=== PATIENT | female | born 1940 | race Caucasian/White ===

== ENCOUNTER → 2016-12-25 | Outpatient (CLI) | payer BC ==
[~2016-12-25] MED LIST: ARTISOL12 OP; ARTISOL12 OPB; ASPCH81X PO; CALC200T PO; CLON0.5T3 PO; EVS60 PO; GLUC10007 PO; HYDR-5688 PO; IBUP1CAP9 PO; METO-217 PO; NIAC500T7 PO; OMEGCAP2 PO; PANT40TA PO; PRED1SUS3 OPR; RALO60TA30 PO; SIMV40TA2 PO; [UNRECOGNIZED DRUG - CODE] OPB
--- NOTE | 2016-12-25 11:21 | DIAGNOSTIC IMAGING REPORT ---
LEFT FOOT 3 VIEWS HISTORY: Left foot pain. COMPARISON: None. FINDINGS: There is no fracture or dislocation. Soft tissues are unremarkable. No radiopaque foreign bodies. The Lisfranc joint is intact. 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 Small plantar heel spur. IMPRESSION: No fractures. 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 Electronically signed by: Wilson Edgar M.D. 12/25/2016 11:19 AM Dictated Date/Time: 12/25/2016 11:17 AM
== END | disposition home or self-care (01) ==
LOC: C.RAD1850 11:07
PROVIDERS: ATTEND Internal Medicine
DX: M19.072 Primary osteoarthritis, left ankle and foot (principal)

== ENCOUNTER 2017-02-10 09:35 | Emergency (ER) | payer BC ==
[~2017-02-10] VITALS: Ht 160 cm; Wt 58.6 kg
[~2017-02-10 09:35] MED LIST changes: -ARTISOL12 OP; -ARTISOL12 OPB; -HYDR-5688 PO; -PANT40TA PO; -PRED1SUS3 OPR; -RALO60TA30 PO
[2017-02-10 09:41] VITALS: TEMP 36.4; Ht 160 cm; Wt 58.6 kg
--- NOTE | 2017-02-10 09:55 | EMERGENCY ROOM VISIT NOTE ---
ED Visit Note First contact with patient: 09:46 CHIEF COMPLAINT: Wrist injury HISTORY OF PRESENT ILLNESS: This 76-year-old female patient presents to the emergency department ambulatory complaining of pain in the left wrist after falling back onto an outstretched hand at the [facility] today when she was using a resistance band, pulling backwards and it broke.. The patient is to move their wrist. The patient states the pain is sharp and 6/10. No laceration, no weakness. No numbness or tingling. The patient denies any other injury. The patient is able to move their fingers and elbow without difficulty. The patient has not had any previous injuries to this wrist. The patient has taken nothing for the pain. She sees Dr. Carrasquillo. REVIEW OF SYSTEMS: A 6 system review of systems was performed with positives and pertinent negatives in the HPI. ALLERGIES: Bacitracin, neomycin MEDICATIONS: See nursing notes PMH: Osteoporosis, hyperlipidemia, hypertension, multiple sclerosis SOCIAL HISTORY: The patient lives locally. She does not smoke PHYSICAL EXAM: Vital Signs: Reviewed Nurse's notes, vital signs stable. GENERAL : This is a 76-year-old female, in no acute distress, but appears to be in pain , well-developed, well-nourished. NEURO: Alert and oriented to person place and time. Normal sensation to light and sharp touch. MUSCULOSKELETAL: There is no significant deformity of the left wrist. There is no erythema and mild ecchymosis. There is mild edema. Tenderness over left distal radius. There is no snuff box tenderness. There is tenderness with any movement. Range of motion is intact but painful. There is no tenderness of the elbow, hand or fingers. Instructional Coach strength 5/5. Radial pulse 2+. SKIN: Normal and intact. The hand is warm and well perfused with capillary refill less than 2 seconds. There is tenderness to palpation over the coccyx and the lumbar spine. There is no obvious deformity, edema, ecchymosis. EMERGENCY DEPARTMENT COURSE: I examined the patient. An X-ray of the left wrist was reviewed by myself and radiology and showed distal radius fracture and ulnar styloid fracture. I do not suspect that the fracture requires reduction although there is some degree of dorsal angulation. Dr. Penny was able to review the films and agreed that this does not require emergent reduction. A sugar tong Ortho-Glass splint was placed under my direction and the position was satisfactory. Neurovascular status rechecked and intact. As the patient sat in the emergency department, she began to complain of coccyx and low back pain. She did not have any loss of bowel or bladder control, neurologic deficit on exam or by history. X-rays of the lumbar spine and coccyx were obtained and do not reveal any acute abnormalities. There are chronic degenerative changes and anterior listhesis. She was given a small prescription for Calvin. She should contact orthopedics today to schedule a follow-up appointment for further evaluation and management. She should return to the ER with any worsening symptoms. The patient was discharged home in good condition. The patient was also seen and examined by who agrees with the assessment and treatment plan. LUMBAR SPINE 5 VIEWS HISTORY: fall, low back, coccyx pain COMPARISON: None. FINDINGS: There is no fracture. 5 mm of anterolisthesis of L4 on L5. Severe disc space narrowing at L4-L5 and L5-S1. Mild disc space narrowing at L2-L3 and L3-L4. Mild facet degenerative changes within the lower lumbar spine. Minimal S-shaped scoliosis of the thoracolumbar spine. The sacrum appears intact. IMPRESSION: No fracture or subluxation within the lumbar spine. Degenerative changes as described above. Grade I anterolisthesis of L4 on L5. COCCYX ONLY CLINICAL HISTORY: Fall, coccyx pain. COMPARISON STUDY: No previous studies for comparison. FINDINGS: No fracture of the coccyx is identified. Sacroiliac joints appear intact. IMPRESSION: No coccygeal fracture identified. LEFT WRIST W/NAVICULAR MIN 3 VIEWS CLINICAL HISTORY: Left wrist pain. Trauma. COMPARISON: None DISCUSSION: There is an intra-articular impaction fracture of the distal radius. There is an associated ulnar styloid fracture.. There is a 22 degree dorsal tilt of the radial articular surface. Moderately advanced osteoarthritic changes are present the level the first carpal metacarpal joint. IMPRESSION: Intra-articular impaction fracture of the distal radius with secondary 22 degrees dorsal tilt of the articular surface. Associated ulnar styloid fracture. Current/Historical Medications Scheduled Artificial Tear Solution (Artificial Tears), 1 DROPS OP DAILY Aspirin (Aspirin Chewable), 2 TABS PO QAM Calcium Carbonate-Vitamin D (Oscal 500/200 D-3), 1 TAB PO QAM Glucosamine Sulfate (Glucosamine), 1,500 MG PO QAM Metoprolol Succinate (Toprol Xl), 50 MG PO QAM Niacinamide (Niacin), 500 MG PO QAM [place]-3 Fatty Acids (Fish Oil), 1 CAP PO QAM Raloxifene Hcl (Evista), 60 MG PO DAILY Simvastatin (Zocor), 40 MG PO QPM Scheduled PRN Clonazepam (Klonopin), 0.5 MG PO DAILY PRN for Anxiety Hydrocodone/Acetaminophen 5MG/325MG (Calvin 5MG/325MG), 1 TABLET PO Q6 PRN for Pain Ibuprofen (Ibuprofen), 1 CAP PO QAM PRN for Pain Allergies Coded Allergies: Bacitracin (Verified Adverse Reaction, Unknown, SKIN IRRITATION, 02/10/17) Neomycin (Verified Adverse Reaction, Unknown, SKIN IRRITATION, 02/10/17) Vital Signs Date Time Temp Pulse Resp B/P (MAP) Pulse Ox O2 Delivery O2 Flow Rate FiO2 02/10/17 11:44 75 18 149/84 98 Room Air 02/10/17 09:41 36.4 77 18 148/72 97 Room Air Departure Information Impression Primary Impression: Closed fracture distal radius and ulna Additional Impression: Fall Dispostion Home / Self-Care Condition GOOD Prescriptions Hydrocodone/Acetaminophen 5MG/325MG (Calvin 5MG/325MG) Tab 1 TABLET PO Q6 Y for Pain, #12 TAB For Initial Treatment Prov: Jacqueline Delgado PA-C 02/10/17 Referrals ,Davonte Donnelly M.D. (PCP) Cruzito Carrasquillo M.D. Patient Instructions ED Fx Colles Wrist No Redu Requ, [facility] Additional Instructions Motrin 600 mg every 6-8 hours for moderate pain, as needed Calvin one half to one tablet every 6 hours if needed for worse pain. Do not drink or drive while taking Calvin and do not take with Tylenol. Wear the splint until seen by orthopedics. Do not get the splint wet Contact orthopedics today to schedule a follow-up appointment for further evaluation and management Return to the emergency Department with any worsening symptoms Problem Qualifiers Primary Impression: Closed fracture distal radius and ulna Encounter type: initial encounter Laterality: left Qualified Codes: S52.502A - Unspecified fracture of the lower end of left radius, initial encounter for closed fracture; S52.602A - Unspecified fracture of lower end of left ulna, initial encounter for closed fracture Additional Impression: Fall Encounter type: initial encounter Qualified Codes: W19.XXXA - Unspecified fall, initial encounter
[2017-02-10] MEDS ORDERED: ARTISOL12 OP (10:29)
[2017-02-10] MEDS ORDERED: RALO60TA30 PO (10:29)
--- NOTE | 2017-02-10 10:30 | DIAGNOSTIC IMAGING REPORT ---
LEFT WRIST W/NAVICULAR MIN 3 VIEWS CLINICAL HISTORY: Left wrist pain. Trauma. COMPARISON: None DISCUSSION: There is an intra-articular impaction fracture of the distal radius. There is an associated ulnar styloid fracture.. There is a 22 degree dorsal tilt of the radial articular surface. Moderately advanced osteoarthritic changes are present the level the first carpal metacarpal joint. IMPRESSION: Intra-articular impaction fracture of the distal radius with secondary 22 degrees dorsal tilt of the articular surface. Associated ulnar styloid fracture. Electronically signed by: Carlos Chen M.D. 02/10/2017 10:29 AM Dictated Date/Time: 02/10/2017 10:26 AM
[2017-02-10] MEDS ORDERED: HYDR-5688 PO (10:58)
--- NOTE | 2017-02-10 11:33 | DIAGNOSTIC IMAGING REPORT ---
COCCYX ONLY CLINICAL HISTORY: Fall, coccyx pain. COMPARISON STUDY: No previous studies for comparison. FINDINGS: No fracture of the coccyx is identified. Sacroiliac joints appear intact. IMPRESSION: No coccygeal fracture identified. Electronically signed by: Keyur Crystal M.D. 02/10/2017 11:31 AM Dictated Date/Time: 02/10/2017 11:30 AM
--- NOTE | 2017-02-10 11:41 | DIAGNOSTIC IMAGING REPORT ---
LUMBAR SPINE 5 VIEWS HISTORY: fall, low back, coccyx pain COMPARISON: None. FINDINGS: There is no fracture. 5 mm of anterolisthesis of L4 on L5. Severe disc space narrowing at L4-L5 and L5-S1. Mild disc space narrowing at L2-L3 and L3-L4. Mild facet degenerative changes within the lower lumbar spine. Minimal S-shaped scoliosis of the thoracolumbar spine. The sacrum appears intact. IMPRESSION: No fracture or subluxation within the lumbar spine. Degenerative changes as described above. Grade I anterolisthesis of L4 on L5. Electronically signed by: Wilson Edgar M.D. 02/10/2017 11:39 AM Dictated Date/Time: 02/10/2017 11:35 AM
[2017-02-10 11:44] VITALS: BP 149/84; PULSE 75; O2SAT 98
--- NOTE | 2017-02-10 11:51 | EMERGENCY ROOM VISIT NOTE ---
ED Visit Note First contact with patient: 09:46 I have personally seen and evaluated the patient with the physician service assistant. I agree with the diagnostic/management decisions and have personally been involved in these decisions and agree with the diagnosis.
== END 2017-02-10 12:06 | disposition home or self-care (01) ==
LOC: C.EDB 09:36
DX: S52.502A Unspecified fracture of the lower end of left radius, initial encounter for closed fracture (principal); S52.602A Unspecified fracture of lower end of left ulna, initial encounter for closed fracture; W18.39XA Other fall on same level, initial encounter; Y93.89 Activity, other specified; Y99.8 Other external cause status; Y92.39 Other specified sports and athletic area as the place of occurrence of the external cause; I10 Essential (primary) hypertension; G35 Multiple sclerosis; E78.5 Hyperlipidemia, unspecified; Z79.82 Long term (current) use of aspirin; Z79.899 Other long term (current) drug therapy

== ENCOUNTER → 2017-03-11 | Outpatient (CLI) | payer BC ==
[~2017-03-11] MED LIST changes: +ARTISOL12 OP; -EVS60 PO; +HYDR-5688 PO; +RALO60TA12 PO; -[UNRECOGNIZED DRUG - CODE] OPB
[2017-03-11 09:35] LABS: BASO % 0.4 %; BASO ABS # 0.02 K/uL (0-0.2); COMPLETE YES; EOS % 3.1 %; HEMATOCRIT 40.3 % (37-47); IG% 0.2 %; LYMPH % 27.8 %; LYMPH ABS # 1.25 K/uL (1.2-3.4); MEAN CELL VOLUME 98.8 fL (80-100); MEAN CORPUSCULAR HEMOGLOBIN 32.8 pg (25-34); MEAN CORPUSCULAR HGB CONC 33.3 g/dl (32-36); MEAN PLATELET VOLUME 10.7 fL (7.4-10.4); MONO % 8.9 %; NEUT % 59.6 %; PLATELET COUNT 233 K/uL (130-400); RED BLOOD COUNT 4.08 M/uL (4.2-5.4)
[2017-03-11 09:59] LABS: ALT/SGPT 31 U/L (12-78); BLOOD UREA NITROGEN 12 mg/dl (7-18); BUN/CREATININE RATIO 15.9 (10-20); CALCIUM 8.9 mg/dl (8.5-10.1); CARBON DIOXIDE 28 mmol/L (21-32); CHLORIDE 108 mmol/L (98-107); CHOLESTEROL 153 mg/dl (0-200); CREATININE 0.73 mg/dl (0.60-1.20); GLUCOSE 84 mg/dl (70-99); SODIUM 142 mmol/L (136-145); TRIGLYCERIDES 49 mg/dl (0-150); VERY LOW DENSITY LIPOPROT CALC 10 mg/dl
[2017-03-11 10:09] LABS: AST/SGOT 23 U/L (15-37); CHOLESTEROL/HDL RATIO 1.9; HDL CHOLESTEROL 81 mg/dl; LDL CHOLESTEROL CALCULATED 62 mg/dl
== END | disposition home or self-care (01) ==
LOC: C.LAB1850 07:03
PROVIDERS: ATTEND Internal Medicine
DX: I25.10 Atherosclerotic heart disease of native coronary artery without angina pectoris (principal); E04.1 Nontoxic single thyroid nodule; E78.5 Hyperlipidemia, unspecified

== ENCOUNTER → 2017-06-28 | Outpatient (CLI) | payer BC ==
[~2017-06-28] MED LIST changes: -RALO60TA12 PO; +RALO60TA30 PO
--- NOTE | 2017-06-28 14:56 | MAMMOGRAPHY REPORT ---
BILATERAL DIGITAL SCREENING MAMMOGRAM WITH CAD: 06/28/2017 CLINICAL HISTORY: Routine screening. Patient has no complaints. TECHNIQUE: Bilateral CC and MLO views were obtained. Current study was also evaluated with a Compute r Aided Detection (CAD) system. COMPARISON: Comparison is made to exams dated: 06/19/2015 mammogram, 06/24/2016 mammogram, 4 mammogram, 06/14/2013 mammogram, 06/08/2012 mammogram, and 06/03/2011 mammogram - [facility]. BREAST COMPOSITION: There are scattered areas of fibroglandular density in both breasts. FINDINGS: There are scattered benign coarse calcifications in the right breast. No suspicious mass, architectural distortion or cluster of microcalcifications is seen. IMPRESSION: ACR BI-RADS CATEGORY 1: NEGATIVE There is no mammographic evidence of malignancy. A 1 year screening mammogram is recommended. The pa tient will receive written notification of the results. Approximately 10% of breast cancers are not detected with mammography. A negative mammographic report should not delay biopsy if a clinically suggestive mass is present. Yulissa Denson M.D. ay/:06/28/2017 12:48:58 Gauge Maker Apprentice: Niru LEE(R)(M), [facility] letter sent: Normal 1/2 BI-RADS Code: ACR BI-RADS Category 1: Negative
== END | disposition home or self-care (01) ==
LOC: C.MAMM 10:13
PROVIDERS: ATTEND Obstetrics & Gynecology
DX: Z12.31 Encounter for screening mammogram for malignant neoplasm of breast (principal)

== ENCOUNTER → 2017-07-26 | Outpatient (CLI) | payer BC | END | disposition home or self-care (01) | LOC: C.MAMM 08:14 | PROVIDERS: ATTEND Internal Medicine | DX: S62.109A Fracture of unspecified carpal bone, unspecified wrist, initial encounter for closed fracture (principal); M85.852 Other specified disorders of bone density and structure, left thigh; M85.851 Other specified disorders of bone density and structure, right thigh; X58.XXXA Exposure to other specified factors, initial encounter ==

== ENCOUNTER → 2017-11-12 | Outpatient (CLI) | payer BC ==
[~2017-11-12] MED LIST changes: -HYDR-5688 PO
== END | disposition home or self-care (01) ==
LOC: C.PAPS 14:31
PROVIDERS: ATTEND Obstetrics & Gynecology
DX: Z12.4 Encounter for screening for malignant neoplasm of cervix (principal); N95.2 Postmenopausal atrophic vaginitis

== ENCOUNTER → 2017-12-21 | Outpatient (CLI) | payer BC ==
[2017-12-21 10:16] LABS: BLOOD UREA NITROGEN 8 mg/dl (7-18); CREATININE 0.89 mg/dl (0.60-1.20); GLUCOSE 83 mg/dl (70-99)
[2017-12-21 10:17] LABS: ALT/SGPT 25 U/L (12-78); AST/SGOT 23 U/L (15-37); CARBON DIOXIDE 30 mmol/L (21-32); CHOLESTEROL 146 mg/dl (0-200); POTASSIUM 3.7 mmol/L (3.5-5.1); SODIUM 142 mmol/L (136-145)
[2017-12-21 10:20] LABS: LDL CHOLESTEROL CALCULATED 55 mg/dl
== END ==
LOC: C.LAB1850 07:14
PROVIDERS: ATTEND Internal Medicine
DX: E78.5 Hyperlipidemia, unspecified (principal); S62.109A Fracture of unspecified carpal bone, unspecified wrist, initial encounter for closed fracture; X58.XXXA Exposure to other specified factors, initial encounter; I25.10 Atherosclerotic heart disease of native coronary artery without angina pectoris

== ENCOUNTER 2020-08-02 10:31 | Observation (INO) ==
--- NOTE | 2020-06-14 15:32 | PAT Medication Instructions ---
Medication Instructions Date of Service June 14, 2020 Home Medications Medication Instructions Recorded conjugated estrogens 0.625 mg/gram See Rx Instructions PV .COMPLEX 07/19/19 vaginal cream #90 gm simvastatin 40 mg tablet 40 mg PO QPM #90 tab 01/01/20 Wheeled Walker #1 ea 05/20/20 conjugated estrogens 0.625 mg/gram vaginal cream See Rx Instructions PV .COMPLEX simvastatin 40 mg tablet 40 mg PO QPM aspirin [Aspir-81] 162 mg PO QAM ubvyvshw-dij-[id number]-koal [Eadjwa-Sjvoh-NOO (with antiox)] 1 tab PO QAM metoprolol succinate 25 mg PO QAM eapnu-0g-gcp-epa-fish oil [[place] 3] 1 cap PO QAM raloxifene 60 mg PO QAM ASK your prescriber and surgeon raloxifene 60 mg PO QAM STOP taking 2 weeks before surgery (or as soon as possible if surgery is within 2 weeks) jejditns-bvf-lddvh-fhf027-pqty [Yvtoxc-Cldtp-KZK (with antiox)] 1 tab PO QAM vtwzk-3e-vbh-epa-fish oil [[place] 3] 1 cap PO QAM STOP taking 24 hours before surgery conjugated estrogens 0.625 mg/gram vaginal cream See Rx Instructions PV .COMPLEX Take morning of surgery With a small sip of water, OTHERWISE NOTHING TO EAT OR DRINK AFTER MIDNIGHT: metoprolol succinate 25 mg PO QAM Take evening before surgery simvastatin 40 mg tablet 40 mg PO QPM Other Notes If you have any questions please call us at [phone] or [phone] or [phone] or [phone]
--- NOTE | 2020-06-19 08:17 | Anesthesiology Consultation ---
Date of Service June 19, 2020 Assessment & Plan (1) Encounter for pre-operative examination: - Patient scheduled to see cardiology prior to surgery [place] [place] Awaiting office visit note. - Per assessment on 06/19: Travel screen negative. No known COVID-19 positive contacts or current COVID-19 related symptoms. Surgeon arranging preop COVID testing (scheduled 07/30; [facility] Awaiting results. - ASA instructions per surgeon/prescriber - Hx multiple sclerosis: discussed SAB vs. GA. Patient advised to discuss with anesthesiologist further AM DOS. Chart Review Chart Review: Patient seen in Pre Admission Testing Teaching & Discussion Pre-Anesthesia Teaching/Discussion Notes: Instructed NPO after midnight before surgery,except medications with 15 cc of water. Medication instructions provided according to the PAT guidelines. History Surgery Operation Date: 08/02/20 07:00 Proposed Procedures p Right Total Knee Arthroplasty - Cruzito Carrasquillo MD Height/Weight Height: 5 ft 3 in Weight: 59.9 kg Allergies Allergy/AdvReac Type Severity Reaction Status Date / Time adhesive tape Allergy Mild Rash Verified 06/19/20 08:32 atorvastatin Allergy Mild Muscle Verified 06/19/20 08:32 cramping bacitracin AdvReac Mild Skin Verified 06/19/20 08:32 irritation neomycin AdvReac Mild Skin Verified 06/19/20 08:32 irritation Medications Home Medications Medication Instructions Recorded Confirmed Last Taken conjugated estrogens 0.625 mg/gram See Rx Instructions PV .COMPLEX 07/19/19 06/12/20 Unknown vaginal cream #90 gm simvastatin 40 mg tablet 40 mg PO QPM #90 tab 01/01/20 06/12/20 Unknown Wheeled Walker #1 ea 05/20/20 06/12/20 Unknown aspirin [Aspir-81] 162 mg PO QAM 06/12/20 06/12/20 Unknown htnyzgnk-iqt-iwchg-ljg252-wapo 1 tab PO QAM 06/12/20 06/12/20 Unknown [Kfdacv-Ordzd-OGN (with antiox)] metoprolol succinate 25 mg PO QAM 06/12/20 06/12/20 Unknown ddhkv-8r-ngw-epa-fish oil [Central 3] 1 cap PO QAM 06/12/20 06/12/20 Unknown raloxifene 60 mg PO QAM 06/12/20 06/12/20 Unknown ibuprofen 200 mg PO DAILY 06/19/20 06/19/20 Unknown Past Medical History Medical History 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 Galindo) Osteopenia Solitary thyroid nodule under surveillance Urinary urgency Exercise / Class Metabolic Activity II 4-5 Yardwork/Stairs/Walk up hill Past Family History Family History Brother Heart disease Mother Heart disease Father Heart disease Denies family history of Ovarian cancer Prostate cancer Myocardial infarction Breast cancer Colorectal cancer Past Surgical History Surgical History History of cardiac cath 2006 (prior to CABG) History of colonoscopy History of dilatation and curettage History of tooth extraction S/P appendectomy S/P CABG (coronary artery bypass graft) CABG X3 (2006) S/P knee surgery left knee arthroscopy Past Anesthesia History No Hx of Anesthesia Complications and No Family Hx of Anesthesia Complications History of PONV No Hx of PONV and Hx of Motion Sickness (single episode (on boat)) Social History Smoking Status: Never smoker Do You Dip or Chew Tobacco: No Hx Alcohol Use: Yes Alcohol type: beer alcohol intake frequency: a few times a month Hx Substance Use: No substance use type: does not use Review of Systems Patient denies chest pain, shortness of breath, dyspnea on exertion, fever, chills, cough, wheezing, palpitations. Physical Exam Vital Signs VITALS BP 136/76 P 66 TEMP 98.3 SP02 98%RA RESP 16 PHYSICAL Full neck and c-spine range of motion. Full TMJ range of motion. TMD 3 finger breaths Mallampati Score 3 Dentition: intact, + implants on right/left sides Lungs: clear throughout to auscultation Cardiac: regular rate and rhythm, no murmurs noted Spine: normal Carotid arteries: negative bruit Extremities: no edema Testing Laboratory Results 06/19/20 08:45 06/19/20 08:45 PT 10.4 Seconds (9.0-12.0) 06/19/20 08:45 INR 1.0 (0.9-1.1) 06/19/20 08:45 APTT 28.0 Seconds (21.0-31.0) 06/19/20 08:45 Blood Type B Positive 06/19/20 08:45 Antibody Screen NEGATIVE 06/19/20 08:45 Electrocardiogram Date: 06/19/20 Findings: + NSR @ (61) Chest X-Ray Date: 06/19/20 FINDINGS: There are postsurgical changes of a midline sternotomy. The heart is normal in size. There is no failure. There is no focal pulmonary consolidation. There are no pleural effusions. There is a thoracolumbar scoliosis. IMPRESSION: No active disease in the chest.
[2020-06-19 10:56] LABS: Basophils # (auto) 0.02 K/uL (0-0.2); Basophils % (auto) 0.4 %; Eosinophils # (auto) 0.09 K/uL (0-0.5); Hematocrit (blood only) 38.3 % (37-47); Lymphocytes # (auto) 1.25 K/uL (1.2-3.4); Lymphocytes % (auto) 27.4 %; Mean Corpuscular Hemoglobin 33.8 pg (25-34); Mean Corpuscular Hgb Conc 33.9 g/dL (32-36); Mean Corpuscular Volume 99.5 fL (80-100); Mean Platelet Volume 11.5 fL (7.4-10.4); Monocytes # (auto) 0.46 K/uL (0.11-0.59); Monocytes % (auto) 10.1 %; Neutrophils # (auto) 2.74 K/uL (1.4-6.5); Neutrophils % (auto) 60.1 %; Platelet Count 240 K/uL (130-400); RDW Coefficient of Variation 12.6 % (11.5-14.5); Red Blood Count 3.85 M/uL (4.2-5.4); White Blood Count 4.56 K/uL (4.8-10.8)
[2020-06-19 11:03] LABS: Prothrombin Time 10.4 Seconds (9.0-12.0)
[2020-06-19 11:05] LABS: BUN Creatinine Ratio 13.2 (10-20); Calcium 9.5 mg/dl (8.5-10.1); Est GFR (African American) 76.6; Est GFR (Non-African American) 66.1; Potassium 4.4 mmol/L (3.5-5.1)
--- NOTE | 2020-06-19 11:08 | XRay Report ---
XR chest Pre-admission PA/Lat CLINICAL HISTORY: Preoperative chest COMPARISON STUDY: 02/26/2009 FINDINGS: There are postsurgical changes of a midline sternotomy. The heart is normal in size. There is no failure. There is no focal pulmonary consolidation. There are no pleural effusions. There is a thoracolumbar scoliosis.[ IMPRESSION: No active disease in the chest. ACT 112: Negative or not required by law. Electronically signed by: Carlos Chen M.D. 06/19/2020 11:07 AM
--- NOTE | 2020-06-19 13:24 | Electrocardiogram Report ---
Test Reason : Blood Pressure : / mmHG Vent. Rate : 061 BPM Atrial Rate : 061 BPM P-R Int : 142 ms QRS Dur : 090 ms QT Int : 418 ms P-R-T Axes : 064 078 066 degrees QTc Int : 420 ms Normal sinus rhythm Normal ECG When compared with ECG of 26-FEB-2009 12:45, No significant change was found Confirmed by Gunnar Moya ([id number]) on 06/19/2020 1:24:15 PM Referred By: Cruzito Carrasquillo Confirmed By:Gunnar Moya
--- NOTE | 2020-07-26 10:23 | History and Physical Report ---
DATE OF ADMISSION: 08/02/2020 CHIEF COMPLAINT: Right knee pain and discomfort. HISTORY OF PRESENT ILLNESS: The patient is an 79-year-old female who I have been following for the past several years for her knee pain, DJD, right side greater than the left. She has been through extensive conservative treatment, most specifically injections and oral medicines. The shots helped quite a bit initially, but became less successful over time. Her right knee hurts. It bothers her when she walks and she limps. It feels unstable to her and she is concerned about giving out. She now would like to have this fixed. The last shot did not help much at all. PAST MEDICAL HISTORY: Significant for, 1. Coronary artery disease, status post 3-vessel CABG in 2006 without symptoms and currently cleared by Dr. Moya. 2. Multiple sclerosis since age 30, followed by Dr. Galindo. No current treatment. 3. Hiatal hernia. PAST SURGICAL HISTORY: Includes, 1. Cardiac bypass surgery in 2006. 2. Left knee osteochondroma excision in 1971. ALLERGIES: None. CURRENT MEDICINES: 1. Simvastatin 40 mg a day. 2. Evista ____ mg a day. 3. [place]ris[place] 5 mg a day. 4. Metoprolol 25 mg a day. 5. Baby aspirin twice a day. 6. Os-Avni with D. 7. Glucosamine. 8. [place] liquid. 9. Niacin 400 mg a day. 10. Clonazepam 5 mg as needed. SOCIAL HISTORY: Significant for an 79-year-old female. She is . Does not smoke. Limited alcohol intake. FAMILY HISTORY: Noncontributory. REVIEW OF SYSTEMS: Negative for diabetes, neurologic problems, vascular problems, or bleeding disorders. No chest pain or shortness of breath. No history of DVT or PE. No known bleeding problems. PHYSICAL EXAMINATION: GENERAL: Shows a pleasant, healthy, spry thin elderly female. Looks to be in excellent health. HEENT: Benign. NECK: Supple, no lymphadenopathy. LUNGS: Clear to auscultation. HEART: Has a regular rate and rhythm. ABDOMEN: Soft, nontender, nondistended. EXTREMITIES: Grossly neurovascularly intact except as follows: Examination of the right knee reveals the patient walks with a slight bit of a limp. She does have a valgus alignment to her knee, which is increased with weightbearing. She has got a small knee effusion. Mild tenderness. Range of motion is about 5-120. No pain with hip motion. There is no gross instability. X-RAYS: X-rays of the right knee were reviewed. It shows advanced right knee lateral compartment DJD. She has got complete loss of her lateral joint space on the 40-degree flexion films. She has got osteophytes primarily laterally. Some mild diffuse osteopenia. ASSESSMENT: An 79-year-old very active female with advanced right knee degenerative joint disease. She has failed conservative treatment and now would like to have her right knee replaced. PLAN: We will take her to the operating room and do right total knee replacement. The risks and benefits of this procedure were explained to the patient including but not limited to DVT, PE, , infection, neurological injury, vascular injury, bleeding problem, pain, limited range of motion, stiffness, failure to relieve her symptoms, incomplete relief of symptoms, need for further surgery in the future, fracture, leg length inequality, nerve palsy, etc. The patient understands and desires to proceed. Informed consent was obtained. She has seen Dr. Moya and has been cleared for surgery. She will take her metoprolol on the morning of surgery. She will hold her ibuprofen 10 days preop. She is planning to be discharged to home using [facility] program.
[~2020-08-02 10:31] MED LIST changes: +ACETAMINOPHEN 500 MG TAB PO SCH; -ARTISOL12 OP; -ASPCH81X PO; +BUPIVACAINE 0.5 % 5 MG/1 ML PF 10ML VIAL ONE; +BUPIVACAINE LIPOSOME/PF 266 MG, BUPIVACAINE/EPINEPHRINE 50 ML, SODIUM CHLORIDE 0.9% 30 ... INFIL SCH; -CALC200T PO; -CLON0.5T3 PO; +EPINEPHrine INJ 1 MG/ML AMP ONE; +FAMOTIDINE 20 MG TAB PO SCH; +GABAPENTIN 300 MG CAP PO SCH; -GLUC10007 PO; -IBUP1CAP9 PO; +LR 500ML BOLUS, THEN 15ML/HR IV SCH; +LR 60ML/HR IV SCH; -METO-217 PO; +METOCLOPRAMIDE HCL 10 MG TABLET PO SCH; -NIAC500T7 PO; -OMEGCAP2 PO; -RALO60TA30 PO; +ROPIVACAINE 0.5% 5 MG/ML 30 ML VIAL ONE; -SIMV40TA2 PO; +TRANEXAMIC ACID 1,000 MG **IV Intra-op IV SCH; +ceFAZolin 2000MG 2,000 MG/15 ML SYR IV SCH
[2020-08-02] MEDS ORDERED: MIDAZOLAM HCL 1 MG/ML 2ML VIAL ONE (10:37)
[2020-08-02] MEDS ORDERED: PROPOFOL IV EMULSION 10 MG/ML 20 ML VIAL IV ONE ×2 (10:37→12:48)
[2020-08-02] MEDS ORDERED: fentaNYL citrate 100 MCG/2 ML VIAL ONE ×2 (10:37→12:36)
--- NOTE | 2020-08-02 12:00 | History & Physical Bridge Note ---
Date of Service August 02, 2020 History & Physical Bridge Note I have examined the patient, reviewed the History & Physical and in the interval since the performance of the History & Physical I have noted the following changes of clinical significance: no changes noted
[2020-08-02] MEDS ORDERED: SODIUM CHLORIDE 0.9% PF 50 ML VIAL ONE (12:01)
[2020-08-02] MEDS ORDERED: BACITRACIN INJ 50,000 UNIT VIAL ONE (12:01)
[2020-08-02] MEDS ORDERED: BUPIVACAINE LIPOSOME 1.3% 266 MG/20 ML VIAL ONE (12:01)
[2020-08-02] MEDS ORDERED: BUPIVACAINE 0.25% 30 ML VIAL ONE (12:02)
[2020-08-02] MEDS ORDERED: EPINEPHrine INJ 1 MG/ML AMP ONE (12:02)
[2020-08-02] MEDS ORDERED: ePHEDrine sulfate 50 MG/ML AMP IV PRN (12:19)
[2020-08-02] MEDS ORDERED: NALOXONE HCL 0.4 MG/1 ML VIAL/CARP IV PRN ×2 (12:19→15:36)
[2020-08-02] MEDS ORDERED: ATROPINE SULFATE 0.1 MG/ML 10ML SYR IV PRN (12:19)
[2020-08-02] MEDS ORDERED: FLUMAZENIL 0.1 MG/1 ML 10 ML VIAL IV PRN (12:19)
[2020-08-02] MEDS ORDERED: PROMETHAZINE HCL 12.5 MG in SODIUM CHLORIDE 0.9% 50 ML IV PRN (12:19)
[2020-08-02] MEDS ORDERED: LABETALOL HCL IV 5 MG/ML 20ML IV PRN (12:19)
[2020-08-02] MEDS ORDERED: ONDANSETRON INJ 2 MG/ML 2 ML VIAL IV PRN ×2 (12:19→15:36)
[2020-08-02] MEDS ORDERED: HYDROmorphone INJ 1 MG/ML SYRINGE IV PRN (12:19)
[2020-08-02] MEDS ORDERED: fentaNYL citrate 100 MCG/2 ML VIAL IV PRN (12:19)
[2020-08-02] MEDS ORDERED: ONDANSETRON INJ 2 MG/ML 2 ML VIAL ONE (12:36)
[2020-08-02] MEDS ORDERED: DEXAMETHASONE SOD INJ 4 MG/ML VIAL ONE (12:36)
[2020-08-02] MEDS ORDERED: ePHEDrine sulfate 50 MG/ML SYR ONE (12:46)
[2020-08-02] MEDS ORDERED: PHENYLEPHRINE HCL 10 MG/ML VIAL ONE (12:46)
--- NOTE | 2020-08-02 13:58 | Post Operative Brief Note ---
PG Immediate Post Op with CF Date of Surgery August 02, 2020 Pre & Post Diagnosis Operation Date: 08/02/20 12:30 Pre-Op Diagnosis: Right Knee Advanced Degenerative Joint Disease Post-Op Diagnosis: Right Knee Advanced Degenerative Joint Disease I identified the patient and participated in the time-out.: Yes Procedure Operation Date: 08/02/20 12:30 Actual Procedures p Right Total Knee Arthroplasty(Right) - Cruzito Carrasquillo MD Surgeon Cruzito Carrasquillo MD Personnel Director JACK Fairbanks Estimated Blood Loss 100 Findings Consistent with Post-Op Diagnosis Fluids 800 cc. Specimens Specimen Description: A. Right Knee Bone and Tissue Drains [place] Catheter Anesthesia Type Spinal MAC Complications none Disposition Accompanied Patient To Recovery: No Disposition: Recovery Room
--- NOTE | 2020-08-02 14:12 | Operative Report ---
Post Operative Report Pre & Post Diagnosis Operation Date: 08/02/20 12:30 Pre-Op Diagnosis: Right Knee Advanced Degenerative Joint Disease Post-Op Diagnosis: Right Knee Advanced Degenerative Joint Disease I identified the patient and participated in the time-out.: Yes Procedure Operation Date: 08/02/20 12:30 Actual Procedures p Right Total Knee Arthroplasty(Right) - Cruzito Carrasquillo MD Surgeon Cruzito Carrasquillo MD Mission Assessment Specialist JACK Fairbanks Estimated Blood Loss 100 Findings Consistent with Post-Op Diagnosis Operative findings revealed advanced right knee DJD. She had grade 4 [id number] disease of the lateral femoral condyle and posterior lateral tibial plateau with some eburnation laterally. She had a valgus deformity to her knee. Moderate sized knee joint effusion. Diffuse osteopenia. Fluids 800 cc. Specimens Right knee sent for pathology. Drains None. Anesthesia Type General Regional Complications none Disposition Accompanied Patient To Recovery: No Disposition: Recovery Room Indications Patient is an 79-year-old fairly active female with some underlying MS who p resents with a long history of right knee pain discomfort. She been through extensive conservative treatment of years with became less successful over time. X-rays show advanced lateral compartment DJD. She elected proceed with surgical treatment. She does have history of MS and therefore a general anesthetic was implemented by the anesthesia team. Description of Procedure Operative implants consist of: 1. Biomet Vanguard size 62.5 right posterior stabilized femoral component. 2. Biomet size 67 tibial tray. 3. 10 mm posterior stabilized polyethylene insert. 4. 28 x 8 all polypatella. The patient was taken to the operating room identified and placed on the operating table supine position but all contact areas were properly padded. IV antibiotics were tried by anesthesia team. And abductor canal block had been provided in the holding area. A general anesthetic was implemented. Layton catheter was placed. A right thigh tip was then placed in the right lower extremity was then prepped and draped in usual sterile fashion. The right leg was elevated exsanguinated with use of an Esmarch and tourniquet placed at 300 mmHg. An anterior approach to the right knee was then performed to longitudinal incision centered over the patella. Sharp dissection was got through subcutaneous tissue down the extensor mechanism. Medial parapatellar arthrotomy incision was made. Some subperiosteal dissection was carried out medially. The fat pad was resected from each patella tendon. Lateral patellofemoral ligament was released. Patella was subluxated laterally knee was flexed. The osteophytes were taken off the distal femur. The ACL and PCL were then released from distal femur and tibia subluxated anteriorly. The external tibial alignment jig was then placed in the interface the tibia and adjusted 12 mm medially. The proximal tibial cut was then made to remove about 3 to 4 mm of bone from the medial side. The tibia was sized to a size 67. We try to maximize coverage due to her osteopenia. Attention drawn the femur. The distal femur then with a sharp drop with intramedullary canal was suction. A right 5 degree valgus cutting guide was placed. Distal femoral cutting block was pinned in place. Distal femoral cut was made to take an additional 3 mm bone off the distal femur. I then brought the knee out in extension. I did release some the IT band and posterior lateral capsule in order to equalize the extension gap. Great care was taken throughout the procedure protect the peroneal nerve at all times. The knee was then flexed. The knee was sized to a size 62.5. The AP cutting block was pinned parallel to the epicondylar axis which was 5 degrees of external rotation. The anterior cut, anterior chamfer, posterior cut, posterior chamfer cuts were made. Box cutting guide was placed in just slight lateral and the box cut was made. The knee was flexed. The remnants of medial lateral menisci were excised. The osteophytes were taken off the posterior aspect the femur. Trial femoral component was placed. The tibial tray was pinned in maximum external rotation and the drill and stem punch were used to create defect in proximal tibia for the tibial tray. Knee was then trialed and the 10 mm insert fit most appropriately. Attention drawn the patella. The patella was cleaned of all soft tissues. Patella thickness measured 21 mm in thickness. Was cut down to 13. Sized to a size 28 patella. Locals were drilled for the 28 patella. The lateral osteophyte was removed. Patella button was placed. Knee was taken through range of motion patella tracked nicely with no thumbs test. Attention drawn to place the permanent components. All trial components were removed. Bone plug was placed in the distal femur related to limit the blood loss. A double batch Palacos G cement was mixed. BiomStorm Exchangeguard size 62.5 right posterior stabilized femoral component, size 67 tibial tray, 10 mm posterior stabilized polyethylene insert, and a 28 x 8 all polypatella then cemented in place. Knee was brought out in full extension until the l cement hardened. Final cement check was then performed. The pericapsular tissues were injected with a total of 100 cc of combination of 20 cc of Exparel, 30 cc normal saline, 50 cc of quarter percent Marcaine with epinephrine. Patient did receive 1 g tranexamic acid. The tourniquet was then let down for final tourniquet time 51 minutes. Hemostasis reduced electrocautery. The wounds once again irrigated. Extensor mechanism then closed with combination 1 PDS suture #1 Vicryl suture in [id number] fashion. Extensor mechanism was checked and found to be intact with subcutaneous tissue then closed with 2 Dexon suture in a buried interrupted fashion skin was closed skin manan. Leg was then cleaned dried a sterile dressing composed Xeroform, 4 x 4's, sterile cast padding, Yousuf bandage were applied. Patient then transferred to the recovery room in stable condition. Patient tolerated procedure well and there were no complications. Ambrocio Fairbanks, my physician budget assistant, was present for the entire procedure. His assistance was essential and required for appropriate patient positioning, prepping and draping, surgical exposure, performing the technical details of the operation, placement the implants, closure of the wound, and placement of the sterile bandage. I attest to the content of the Intraoperative Record and any orders documented therein. Any exceptions are noted below.
--- NOTE | 2020-08-02 14:40 | XRay Report ---
XR knee RT 1 or 2V routine HISTORY: 79 years-old Female Surgical Post Op right knee total joint arthroplasty COMPARISON: None TECHNIQUE: 2 views the right knee FINDINGS: Right knee total joint arthroplasty and patella resurfacing. Anterior midline skin manan are noted along with expected postsurgical soft tissue swelling and deep tissue air with surgical drainage cath eter. Arterial calcifications. No acute fracture, malalignment or opaque foreign body. IMPRESSION: Right knee total joint arthroplasty with expected postoperative changes. ACT 112: Negative or not required by law. The above report was generated using voice recognition software. It may contain grammatical, syntax o r spelling errors. Electronically signed by: Catarino Amin M.D. 08/02/2020 2:38 PM
--- NOTE | 2020-08-02 14:41 | Anesthesiology Progress Note ---
Date of Service August 02, 2020 Anesthesia Post Procedure Vital Signs Vital Signs: Temp Pulse Pulse Resp BP Pulse Ox 08/02/20 14:35 81 17 131/69 99 08/02/20 14:25 75 13 134/66 100 08/02/20 14:15 78 13 128/74 100 08/02/20 14:06 36.4 C L 79 16 141/63 H 100 08/02/20 11:40 65 18 151/71 H 100 08/02/20 11:25 37 C 70 18 154/79 H 97 Transfer of Care Handoff Completed per policy Notes Mental Status: alert / awake / arousable and participated in evaluation Patient Amnestic to Procedure: Yes Nausea / Vomiting: adequately controlled Pain: adequately controlled Airway Patency, RR, SpO2: stable & adequate BP & HR: stable & adequate Hydration State: stable & adequate Anesthetic Complications: no major complications apparent
[2020-08-02] MEDS ORDERED: bisacodyL 10 MG SUPP PR PRN (15:36)
[2020-08-02] MEDS ORDERED: ALUMINUM/MAGNESIUM SUSP 30 ML UDC PO PRN (15:36)
[2020-08-02] MEDS ORDERED: SODIUM CHLORIDE 0.9% 1000ML 1,000 ML IV SCH (15:36)
[2020-08-02] MEDS ORDERED: MAGNESIUM HYDROXIDE SUSP 30 ML UDC PO PRN (15:36)
[2020-08-02] MEDS ORDERED: HYDROmorphone INJ 0.5 MG/0.5 ML SYR IV PRN (15:36)
[2020-08-02] MEDS ORDERED: traMADol HCL 50 MG TABLET PO PRN (15:36)
[2020-08-02] MEDS ORDERED: METOCLOPRAMIDE HCL INJ 5 MG/ML 2 ML VIAL IV PRN (15:36)
[2020-08-02] MEDS: ASCORBIC ACID 500 MG TAB PO SCH (16:49)
[2020-08-02] MEDS: FERROUS GLUCONATE 324 MG TAB PO SCH (16:49)
[2020-08-02] MEDS: ACETAMINOPHEN 500 MG TAB PO SCH ×2 (16:50→21:14)
[2020-08-02] MEDS: KETOROLAC TROMETHAMINE 15 MG/ML VIAL IV SCH ×2 (18:04→23:19)
[2020-08-02] MEDS: ceFAZolin 1000MG 1,000 MG/7.5 ML SYR IV SCH (19:45)
[2020-08-02] MEDS ORDERED: TRANEXAMIC ACID / 0.7% NACL 1,000 MG/100 ML BAG IV SCH (20:00)
[2020-08-02] MEDS ORDERED: SIMVASTATIN 40 MG TAB PO SCH (21:00)
[2020-08-02] MEDS ORDERED: SENNA 8.6 MG TAB PO SCH (21:00)
[2020-08-02] MEDS: cycloSPORINE (RESTASIS) OPB SCH (21:11)
[2020-08-02] MEDS: ASPIRIN 81 MG ECTAB PO SCH (21:14)
[2020-08-02] MEDS: DOCUSATE SODIUM 100 MG CAP PO SCH (21:14)
[2020-08-03 03:56] LABS: Hematocrit (blood only) 28.3 % (37-47); Hemoglobin 9.5 g/dL (12.0-16.0); Mean Corpuscular Hemoglobin 32.9 pg (25-34); Mean Corpuscular Hgb Conc 33.6 g/dL (32-36); Mean Corpuscular Volume 97.9 fL (80-100); Platelet Count 193 K/uL (130-400); RDW Coefficient of Variation 12.7 % (11.5-14.5); RDW Standard Deviation 45.7 fL (36.4-46.3); Red Blood Count 2.89 M/uL (4.2-5.4); White Blood Count 10.52 K/uL (4.8-10.8)
[2020-08-03] MEDS: ceFAZolin 1000MG 1,000 MG/7.5 ML SYR IV SCH (04:13)
[2020-08-03 04:17] LABS: BUN Creatinine Ratio 16.6 (10-20); Creatinine Clr Calc Pharmacy 50.7 ml/min; Est GFR (Non-African American) 78.5; Potassium 3.9 mmol/L (3.5-5.1)
[2020-08-03] MEDS: ACETAMINOPHEN 500 MG TAB PO SCH (06:00)
[2020-08-03] MEDS: KETOROLAC TROMETHAMINE 15 MG/ML VIAL IV SCH (06:35)
[2020-08-03] MEDS: FERROUS GLUCONATE 324 MG TAB PO SCH (08:00)
[2020-08-03] MEDS: ASCORBIC ACID 500 MG TAB PO SCH (08:00)
[2020-08-03] MEDS: DOCUSATE SODIUM 100 MG CAP PO SCH (09:00)
[2020-08-03] MEDS: cycloSPORINE (RESTASIS) OPB SCH (09:00)
[2020-08-03] MEDS ORDERED: OMEGA-3 (PURIFIED FISH OIL) 1 GM CAP PO SCH (09:00)
[2020-08-03] MEDS ORDERED: METOPROLOL SUCC 25MG EXT REL TAB PO SCH (09:00)
[2020-08-03] MEDS ORDERED: MULTIVITAMIN TAB PO SCH (09:00)
[2020-08-03] MEDS ORDERED: RALOXIFENE HCL 60 MG TAB PO SCH (09:00)
[2020-08-03] MEDS: ASPIRIN 81 MG ECTAB PO SCH (09:00)
--- NOTE | 2020-08-03 13:40 | Progress Notes ---
DATE: 08/03/2020 SUBJECTIVE: The patient is postop day 1 from a right knee replacement. She is doing well. She had a good night. Fairly minimal knee pain. She did get up and walk around some. OBJECTIVE GENERAL: Shows a pleasant elderly female. She is sitting up in bed, looks quite comfortable. LUNGS: Clear to auscultation. HEART: Has a regular rate and rhythm. ABDOMEN: Soft, nontender, nondistended. EXTREMITIES: Grossly neurovascularly intact except as follows. Examination of the right leg reveals the leg to be well aligned. Dressing is clean, dry and intact. She can dorsiflex and plantarflex her foot appropriately. She is neurologically intact. ASSESSMENT: Postop day 1 from right knee replacement, doing quite well. Pain is controlled. She is neurologically intact. PLAN: 1. DVT prophylaxis including thigh-high TEDs, SCDs, and aspirin twice a day. 2. PT/OT. Weight bear as tolerated. Right total knee protocol. 3. Pain control, doing well with current pain regimen. 4. Disposition: Plan to discharge to home with some home health later today if she does okay in therapy and her pain is controlled.
[2020-08-04] MEDS ORDERED: CeleBREX 200 MG CAP PO SCH (21:00)
[2020-08-06] MEDS ORDERED: PREMARIN VAG CRM 14 APPLN/30 GM TUBE PV SCH (09:00)
--- NOTE | 2020-08-06 09:59 | Discharge Summary ---
Date of Service August 06, 2020 Admission HPI Per Admitting Provider Documented in the H & P Admission Exam (Per Admitting) Constitutional Documented in the H & P Discharge Data Consultations 08/02/20 15:36 Consult Case Management - Discharge Planning Routine Procedures Performed Operation Date: 08/02/20 12:30 Actual Procedures p Right Total Knee Arthroplasty(Right) - Cruzito Carrasquillo MD Hospital Course (1) Status post total right knee replacement: This patient is a 79 year old female admitted on 08/02/20 and underwent total knee arthroplasty. She tolerated the procedure well and there were no complications. Transferred to the PACU post op and later to the orthopedic floor for further care. She was given ancef for antibiotic prophylaxis. She was also given CHEIKH stockings, SCDs, and aspirin for DVT prophylaxis. Hemoglobin, hematocrit, and vital signs were monitored during her hospital stay and remained stable. Did not require any blood transfusions. There were no complications during her hospital stay. By post op day #1 the patient was tolerating a regular diet, pain was reasonably controlled with oral pain medicine, and she was participating in physical therapy. On post op day #1 the patient was discharged home and set up with home health care. She was given printed discharge instructions including prescriptions for extra strength tylenol, aspirin, iron supplement, and tramadol. Continue physical therapy, weight bearing as tolerated. Continue CHEIKH stockings. Follow up approximately 2 weeks post op or sooner if there are problems or concerns. Coding Level of Care Code None Diagnoses Status post total right knee replacement Z96.651
== END 2020-08-03 11:51 | disposition home health service (06) ==
LOC: ASU 10:31 → 3E 10:31

== ENCOUNTER 2023-12-14 09:08 | Observation (INO) ==
--- NOTE | 2023-11-25 10:17 | PAT Medication Instructions ---
Medication Instructions Date of Service November 25, 2023 Home Medications Medication Instructions Recorded metoprolol succinate 25 mg 12.5 mg (1/2 x 25 mg) PO QAM #45 01/06/23 tablet,extended release 24 hr tabs raloxifene 60 mg tablet 60 mg PO QAM #90 tabs 01/06/23 cyclosporine 0.05 % eye drops in a dropperette (Restasis) 1 drp OPB BID metoprolol succinate 25 mg tablet,extended release 24 hr 12.5 mg (1/2 x 25 mg) PO QAM raloxifene 60 mg tablet 60 mg PO QAM amoxicillin 500 mg tablet 2,000 mg PO UD PRN aspirin 81 mg tablet,delayed release (Adult Low Dose Aspirin) 81 mg PO QAM clonazepam 0.5 mg tablet 0.25 - 0.5 mg PO HS PRN szteeiws-ghja-qysa 8 mg-folic 400 mcg-K 50 mcg-lutein 300 mcg tablet (Centrum Silver Women) 1 tab PO QAM rosuvastatin 10 mg tablet 10 mg PO HS Continue as directed amoxicillin 500 mg tablet 2,000 mg PO UD PRN(if needed) ASK your prescriber and surgeon raloxifene 60 mg tablet 60 mg PO QAM aspirin 81 mg tablet,delayed release (Adult Low Dose Aspirin) 81 mg PO QAM DO NOT take the morning of surgery igbqiwzc-nkqh-kfrk 8 mg-folic 400 mcg-K 50 mcg-lutein 300 mcg tablet (Centrum Silver Women) 1 tab PO QAM Take morning of surgery With a small sip of water, OTHERWISE NOTHING TO EAT OR DRINK AFTER MIDNIGHT: cyclosporine 0.05 % eye drops in a dropperette (Restasis) 1 drp OPB BID metoprolol succinate 25 mg tablet,extended release 24 hr 12.5 mg (1/2 x 25 mg) PO QAM Take evening before surgery cyclosporine 0.05 % eye drops in a dropperette (Restasis) 1 drp OPB BID clonazepam 0.5 mg tablet 0.25 - 0.5 mg PO HS PRN(if needed) rosuvastatin 10 mg tablet 10 mg PO HS Other Notes If you have any questions please call us at [phone] or [phone] or [phone] or [phone]
--- NOTE | 2023-11-29 09:26 | Anesthesiology Consultation ---
Date of Service November 29, 2023 Assessment & Plan (1) Encounter for pre-operative examination: - Infectious disease screening: Per assessment on 11/29/23: No known infectious disease contacts or current infectious disease symptoms. No noted recent Covid positive test result. - Outpatient joint assessment: Pt currently scheduled for inpatient pathway. If surgeon requests review for outpatient joint pathway, patient is not recommended candidate for outpatient joint program from anesthesia standpoint. - Cardiology visit (08/03/23): "Patient with three-vessel CABG 2006 who is doing well clinically, no symptoms to suggest ongoing myocardial ischemia, dysrhythmia, or congestive heart failure. Transient BP elevations prompted initiation of an antihypertensive but she developed orthostasis, at home and currently she is normotensive off BP meds (other than a low-dose of metoprolol). Vascular risk factors well-controlled with stable weight, favorable lipids (LDL 69), mostly normotensive BP, and previously regular exercise (impaired currently due to ortho limitations). Reviewed her medications, patient for patient to and this could increase her bruising/bleeding tendency, she will discontinue omega-3 supplement. As noted, she did not tolerate atorvastatin, given her favorable lipid profile reasonable to remain on simvastatin 40 mg daily. Given risk of medication interactions on simvastatin however, recommended attempting rosuvastatin [address] of simvastatin. If she has any side effects, she can return to simvastatin. Carotid Doppler 2016 was quite favorable appearin g, no need to recheck. Cardiology followup in 6 months." - Multiple sclerosis: Stable, following with neuro. S/P Right TKA (08/02/20): Done under [place], LMA igel 4 + regional at [facility] - Routine visit with PCP scheduled prior to surgery- Awaiting upcoming PCP office visit note ([facility], appt 12/09). Patient otherwise acceptable risk for surgery. History Surgery Operation Date: 12/14/23 08:50 Proposed Procedures p Left Total Knee Arthroplasty - Cruzito Carrasquillo MD Height/Weight Height: 5 ft 3 in Weight: 59 kg Allergies Allergy/AdvReac Type Severity Reaction Status Date / Time atorvastatin Allergy Mild Muscle Verified 11/15/23 10:15 cramping bacitracin AdvReac Mild Skin Verified 11/15/23 10:15 irritation neomycin AdvReac Mild Skin Verified 11/15/23 10:15 irritation Medications Home Medications Medication Instructions Recorded Confirmed Last Taken cyclosporine 0.05 % eye drops in a 1 drp OPB BID Dry eyes 08/02/20 11/15/23 08/02/20 06:30 dropperette (Restasis) metoprolol succinate 25 mg 12.5 mg (1/2 x 25 mg) PO QAM #45 01/06/23 11/15/23 Unknown tablet,extended release 24 hr tabs raloxifene 60 mg tablet 60 mg PO QAM #90 tabs 01/06/23 11/15/23 Unknown amoxicillin 500 mg tablet 2,000 mg PO UD PRN dental 11/15/23 11/15/23 Unknown procedures aspirin 81 mg tablet,delayed 81 mg PO QAM 11/15/23 11/15/23 Unknown release (Adult Low Dose Aspirin) clonazepam 0.5 mg tablet 0.25 - 0.5 mg PO HS PRN 11/15/23 11/15/23 Unknown anxiety/sleep skteoraz-hlru-cjls 8 mg-folic 400 1 tab PO QAM 11/15/23 11/15/23 Unknown mcg-K 50 mcg-lutein 300 mcg tablet (Centrum Silver Women) rosuvastatin 10 mg tablet 10 mg PO HS 11/15/23 11/15/23 Unknown Past Medical History Medical History 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 neurology Osteopenia Solitary thyroid nodule under surveillance Spondylolisthesis Urinary urgency Exercise / Class Metabolic Activity III < 4 Walking/Shop/Light housework Past Family History Family History Brother Heart disease Mother Heart disease Father Heart disease Denies family history of Ovarian cancer Prostate cancer Myocardial infarction Breast cancer Colorectal cancer Past Surgical History Surgical History History of cardiac cath 2006 (prior to CABG[place] [facility] [place] w/exertion + "family hx of heart problems," History of colonoscopy History of dilatation and curettage History of tooth extraction Hx of bilateral cataract extraction S/P appendectomy S/P CABG (coronary artery bypass graft) CABG X3 (2006), [facility] [place] f/u dr[place] S/P knee surgery left knee arthroscopy Status post right knee replacement Right TKA (08/02/20): LMA igel 4 + regional at [facility] Past Anesthesia History No Hx of Anesthesia Complications and No Family Hx of Anesthesia Complications History of PONV No Hx of PONV and No Hx of Motion Sickness Social History Smoking Status: Never smoker Do You Dip or Chew Tobacco: No Hx Alcohol Use: Yes Alcohol type: beer alcohol intake frequency: holidays/special occasions only Hx Substance Use: No substance use type: does not use Review of Systems Patient denies chest pain, shortness of breath, fever, chills, cough, wheezing, palpitations. Physical Exam Vital Signs BP 148/82 P 67 TEMP 97.9 SP02 99%RA RESP 16 Physical Full cervical extension range of motion. Full TMJ range of motion. TMD 3 finger breaths Mallampati Score 2 Dentition: + implants, upper temporary sides (removable) Lungs: clear throughout to auscultation Cardiac: regular rate and rhythm, no murmurs noted Spine: normal Carotid arteries: negative bruit Extremities: no LE edema Lab Results Anesthesia Preop Results Results Anesthesia Widget: WBC 5.07 K/ul (4.8-10.8) 11/29/23 Hgb 12.9 g/dl (12.0-16.0) 11/29/23 Hct 37.2 % (37.0-47.0) 11/29/23 Plt 210 K/uL (130-400) 11/29/23 Na 141 mmol/L (136-145) 11/29/23 K 3.9 mmol/L (3.5-5.1) 11/29/23 Cl 107 mmol/L (98-107) 11/29/23 CO2 28 mmol/L (21-32) 11/29/23 BUN 13 mg/dl (6-23) 11/29/23 Creat 0.80 mg/dl (0.6-1.2) 11/29/23 Glucose Level 91 mg/dl (70-99(Fasting)) 11/29/23 PT 10.7 Seconds (9.0-12.0) 11/29/23 PTT 28 Seconds (21-31) 11/29/23 INR 1.0 (0.9-1.1) 11/29/23 TSH 3.505 uIu/ml (0.300-4.500) 11/22/23 Blood Type B Positive 11/29/23 Antibody Screen NEGATIVE 11/29/23 Testing Electrocardiogram Date: 11/29/23 NSR at 71bpm. PACs. Minimal voltage criteria for LVH, may be normal variant (Sokolow-Brar). No significant change compared to 06/19/2020 per pharmacy graduate intern comparison. Chest X-Ray Date: 11/29/23 FINDINGS: Cardiomediastinal and hilar silhouettes are within normal limits. Median sternotomy with mediastinal surgical clips. No pneumothorax, pleural effusion or airspace consolidation. Bones appear grossly intact. Lumbar levoscoliosis redemonstrated. IMPRESSION: No acute process.
--- NOTE | 2023-12-10 07:14 | History & Physical Report ---
Date of Service December 10, 2023 Assessment & Plan (1) Left knee DJD: 83-year-old female 3 years out from a right knee replacement with left knee moderate DJD. She has been through extensive conservative treatment continues to be by pain discomfort and instability. She is failed conservative measures. She is resorted to using a walker to get around due to her instability she is frustrated by this and she would like her knee fixed. Plan: Orgran taken to the operating do left total knee replacement for the risks Mente this procedure plan the patient include but not limited to DVT PE infection neurological and vascular bleeding palm pain limb range of motion this is fairly with symptoms incomplete relief of symptoms excetra. The patient understands and desires to proceed. Informed consent is obtained. She does have his cardiac history but cardiac hernandez stable. Will waiting final clearance from her medical doctor Dr. Gallagher. He is open to be discharged to [facility] for brief rehab stay postoperatively. (2) Status post total right knee replacement: History of Present Illness Chief Complaint: . Persistent left knee pain discomfort and instability. Primary Care Provider: Davonte Gallagher MD . Patient is an 83-year-old female who returns for follow-up and treatment of her left knee. Had a long history of knee problems and replaced her right knee 3 years ago. Never been completely happy with this but says she is significantly improved.Still a little bit of lateral knee pain. She continues to be bothered by left knee pain discomfort and instability. I been following her for this for years. She has had injections which provide some temporary relief. She is frustrated by her pain discomfort and instability. She is actually resorted to use a walker lately. She like to have her knee fixed. Allergies Allergy/AdvReac Type Severity Reaction Status Date / Time atorvastatin Allergy Mild Muscle Verified 12/03/23 09:54 cramping bacitracin AdvReac Mild Skin Verified 12/03/23 09:54 irritation neomycin AdvReac Mild Skin Verified 12/03/23 09:54 irritation Home Medications Medication Instructions Recorded Confirmed Type cyclosporine 0.05 % eye drops in a 1 drp OPB BID Dry eyes 08/02/20 12/03/23 History dropperette (Restasis) metoprolol succinate 25 mg 12.5 mg (1/2 x 25 mg) PO QAM #45 05/10/23 04/05/24 Rx tablet,extended release 24 hr tabs raloxifene 60 mg tablet 60 mg PO QAM #90 tabs 01/06/23 12/03/23 Rx amoxicillin 500 mg tablet 2,000 mg PO UD PRN dental 11/15/23 12/03/23 History procedures aspirin 81 mg tablet,delayed 81 mg PO QAM 11/15/23 12/03/23 History release (Adult Low Dose Aspirin) clonazepam 0.5 mg tablet 0.25 - 0.5 mg PO HS PRN 11/15/23 12/03/23 History anxiety/sleep [id number] 8 mg-folic 400 1 tab PO QAM 11/15/23 12/03/23 History mcg-K 50 mcg-lutein 300 mcg tablet (Centrum Silver Women) rosuvastatin 10 mg tablet 10 mg PO HS 11/15/23 12/03/23 History hydrocortisone 2.5 % topical cream 1 applic [place] BID PRN hemorrhoids 12/03/23 12/03/23 Rx with perineal applicator #30 grams Past Med/Surg History Medical History Spondylolisthesis Disorder of left rotator cuff Hx injection Hip bursitis, left Left knee DJD Urinary urgency Hiatal hernia Hyperlipidemia Hypertension 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 Coronary artery disease CABG x3 (2006) Follows with [facility] cardiology GERD without esophagitis no issues Multiple sclerosis stable, no current issues, follows with [facility] neurology Osteopenia Solitary thyroid nodule under surveillance Surgical History Hx of bilateral cataract extraction Status post right knee replacement Right TKA (08/02/20): LMA igel 4 + regional at [facility] History of cardiac cath 2006 (prior to CABG), [facility], SOB w/exertion + "family hx of heart problems," History of colonoscopy History of tooth extraction History of dilatation and curettage S/P knee surgery left knee arthroscopy S/P CABG (coronary artery bypass graft) CABG X3 (2006), [facility]; f/u dr. angeles S/P appendectomy Family History Brother Heart disease Mother Heart disease Father Heart disease Denies family history of Ovarian cancer Prostate cancer Myocardial infarction Breast cancer Colorectal cancer Social History Smoking Status: Never smoker Second Hand Exposure: Yes (hx); Do You Dip or Chew Tobacco: No; Hx Alcohol Use: Yes Alcohol type: beer Hx Substance Use: No Preferred Language: Kazakh Communication Ability: Effective Visual Impairment: No Limitations Hearing Ability: Normal Container Maker Required: No Beliefs That Will Affect Care: None marital status: Current Living Situation: Alone current occupational status: retired Feels Safe at Home: Yes Childhood Exposure to Second-Hand Smoke: Yes Dental Care, Regularly: Yes Physical Activity Frequency: 5-6 Times per Week Seatbelt Use: always Sunscreen Use: No Assistive Devices: Glasses and Hearing Aid - Bilateral Review of Systems All systems reviewed & are unremarkable except as noted in HPI & below. Physical Exam . Physical examination reveals a general somewhat frail elderly female. Examination of left knee reveals patient walks with use of a walker. She gets a slight valgus alignment to her knee. Small knee effusion. He does have pretty significant incision over the medial side of her knee anteriorly and medially. The range of motion is full extension to about 110 degrees of flexion. She can do a straight leg raise. No pain with hip motion. Constitutional WD/WN, vitals as above Neck trachea midline, no thyromegaly Respiratory normal respiratory effort, lungs clear to auscultation Cardiovascular RRR, no murmur, no edema Gastrointestinal (Abdomen) normal bowel sounds, soft, nontender, no hepatosplenomegaly Results & Data Results & Data Laboratory Results . Diagnostic Findings . X-rays of the left knee were reviewed. Shows moderate left knee DJD. She is capsicum and get a patellofemoral arthritis. Discussed chondrocalcinosis. PG Care Time/CCT Total # of Minutes Spent Total Time Spent with Patient: Total time spent is greater than 50% in coordination of care (as documented) at patient's floor/unit and/or counseling patient: Coding Level of Care Code None Diagnoses Left knee DJD M17.12 Status post total right knee replacement Z96.651
[~2023-12-14 09:08] MED LIST changes: -ACETAMINOPHEN 500 MG TAB PO SCH; -BUPIVACAINE LIPOSOME/PF 266 MG, BUPIVACAINE/EPINEPHRINE 50 ML, SODIUM CHLORIDE 0.9% 30 ... INFIL SCH; -EPINEPHrine INJ 1 MG/ML AMP ONE; -FAMOTIDINE 20 MG TAB PO SCH; -GABAPENTIN 300 MG CAP PO SCH; -LR 500ML BOLUS, THEN 15ML/HR IV SCH; -LR 60ML/HR IV SCH; -METOCLOPRAMIDE HCL 10 MG TABLET PO SCH; -TRANEXAMIC ACID 1,000 MG **IV Intra-op IV SCH; -ceFAZolin 2000MG 2,000 MG/15 ML SYR IV SCH
[2023-12-14] MEDS ORDERED: ONDANSETRON INJ 2 MG/ML 2 ML VIAL ONE (09:40)
[2023-12-14] MEDS ORDERED: PROPOFOL IV EMULSION 10 MG/ML 20 ML VIAL IV ONE (09:40)
[2023-12-14] MEDS ORDERED: LIDOCAINE 2% 2 ML VIAL/AMP(20MG/ML) INFIL ONE (09:40)
[2023-12-14] MEDS ORDERED: fentaNYL citrate PF 100 MCG/2 ML VIAL ONE (09:41)
[2023-12-14] MEDS ORDERED: MIDAZOLAM HCL 1 MG/ML 2ML VIAL ONE (09:41)
[2023-12-14] MEDS: LR 15ML/HR IV SCH (09:52)
[2023-12-14] MEDS: LR 60ML/HR IV SCH (09:53)
[2023-12-14] MEDS: METOCLOPRAMIDE HCL 10 MG TABLET PO SCH (09:53)
[2023-12-14] MEDS: dexAMETHasone**PF** 10 MG/ML VIAL IV SCH (09:53)
[2023-12-14] MEDS: CeleBREX 200 MG CAP PO SCH (09:53)
[2023-12-14] MEDS: ACETAMINOPHEN 500 MG TAB PO SCH ×2 (09:53→18:33)
[2023-12-14] MEDS: FAMOTIDINE 20 MG TAB PO SCH (09:53)
[2023-12-14] MEDS ORDERED: DEXAMETHASONE SOD INJ 4 MG/ML VIAL ONE (10:34)
[2023-12-14] MEDS ORDERED: ATROPINE SULFATE 0.1 MG/ML 10ML SYR IV PRN (10:34)
[2023-12-14] MEDS ORDERED: EPINEPHrine INJ 1 MG/ML AMP ONE (10:34)
[2023-12-14] MEDS ORDERED: PROMETHAZINE HCL 6.25 MG in SODIUM CHLORIDE 0.9% 50 ML IV PRN (10:34)
[2023-12-14] MEDS ORDERED: fentaNYL citrate PF 100 MCG/2 ML VIAL IV PRN (10:34)
[2023-12-14] MEDS ORDERED: ONDANSETRON INJ 2 MG/ML 2 ML VIAL IV PRN ×2 (10:34→13:42)
[2023-12-14] MEDS ORDERED: BUPIVACAINE 0.25% PF 30 ML VIAL ONE (10:34)
[2023-12-14] MEDS ORDERED: ePHEDrine sulfate 50 MG/ML AMP IV PRN (10:34)
--- NOTE | 2023-12-14 10:34 | Anesthesiology Consultation ---
Date of Service December 14, 2023 Assessment & Plan Chart Review Chart Review: Acceptable Risk for Surgery and Patient NOT seen in Pre Admission Testing Consults Requested none ASA ASA3 Proposed Anesthesia Anesthesia Type: General Regional Regional Laterality: Left Site: Adductor Canal Risk / Benefits Reviewed With: PT / POA / Parent / Guardian, Accepts Plan and Informed Consent Obtained History Surgery Operation Date: 12/14/23 10:40 Proposed Procedures p Left Total Knee Arthroplasty - Cruzito Carrasquillo MD Height/Weight Height: 5 ft 3 in Weight: 58.2 kg Allergies Allergy/AdvReac Type Severity Reaction Status Date / Time atorvastatin Allergy Mild Muscle Verified 12/14/23 09:29 cramping bacitracin AdvReac Mild Skin Verified 12/14/23 09:29 irritation neomycin AdvReac Mild Skin Verified 12/14/23 09:29 irritation Medications Home Medications Medication Instructions Recorded Confirmed Last Taken cyclosporine 0.05 % eye drops in a 1 drp OPB BID Dry eyes 08/02/20 12/14/23 12/14/23 07:00 dropperette (Restasis) raloxifene 60 mg tablet 60 mg PO QAM #90 tabs 01/06/23 12/14/23 12/13/23 07:00 amoxicillin 500 mg tablet 2,000 mg PO UD PRN dental 11/15/23 12/14/23 Unknown procedures aspirin 81 mg tablet,delayed 81 mg PO QAM 11/15/23 12/14/23 12/13/23 07:00 release (Adult Low Dose Aspirin) clonazepam 0.5 mg tablet 0.25 - 0.5 mg PO HS PRN 11/15/23 12/14/23 Unknown anxiety/sleep [id number] 8 mg-folic 400 1 tab PO QAM 11/15/23 12/14/23 12/13/23 07:00 mcg-K 50 mcg-lutein 300 mcg tablet (Centrum Silver Women) rosuvastatin 10 mg tablet 10 mg PO HS 11/15/23 12/14/23 12/13/23 22:30 hydrocortisone 2.5 % topical cream 1 applic ND BID PRN hemorrhoids 12/03/23 12/14/23 12/12/23 with perineal applicator #30 grams metoprolol succinate 25 mg 12.5 mg (1/2 x 25 mg) PO QAM #45 12/10/23 12/14/2324 07:00 tablet,extended release 24 hr tabs Active Medications Generic Name Dose Route Start Last Admin Trade Name Levar PRN Reason Stop Dose Admin Acetaminophen 1,000 mg 12/14/23 06:00 12/14/23 09:53 Acetaminophen 500 Mg Tab PO 12/14/23 18:00 1,000 mg PREOP BRENNAN Administration Celecoxib 200 mg 12/14/23 06:00 12/14/23 09:53 Celebrex 200 Mg Cap PO 12/14/23 18:00 200 mg PREOP BRENNAN Administration Dexamethasone Sodium Phosphate 10 mg 12/14/23 06:00 12/14/23 09:53 DexamethasonePf 10 Mg/Ml Vial IV 12/14/23 18:00 10 mg PREOP BRENNAN Administration Famotidine 20 mg 12/14/23 06:00 12/14/23 09:53 Famotidine 20 Mg Tab PO 12/14/23 18:00 20 mg PREOP BRENNAN Administration Lactated Ringer's 1,000 mls @ 15 mls/hr 12/14/23 06:00 12/14/23 09:52 Lr IV 12/15/23 05:59 15 mls/hr .Q24H BRENNAN Administration Lactated Ringer's 1,000 mls @ 60 mls/hr 12/14/23 06:00 12/14/23 09:53 Lr IV 12/14/23 22:39 Not Given .[id number] BRENNAN Metoclopramide HCl 10 mg 12/14/23 06:00 12/14/23 09:53 Metoclopramide Hcl 10 Mg Tablet PO 12/14/23 18:00 10 mg PREOP BRENNAN Administration NPO Date Last Intake of Fluids: 12/13/23 Time Last Intake of Fluids: 22:30 Last Intake of Fluids Comment: sip of water 0700 w/med Date Last Intake of Solids: 12/13/23 Time Last Intake of Solids: 19:00 Past Medical History Medical History Spondylolisthesis Disorder of left rotator cuff Hip bursitis, left Left knee DJD Urinary urgency Hiatal hernia Hyperlipidemia Hypertension 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 Coronary artery disease GERD without esophagitis Multiple sclerosis Osteopenia Solitary thyroid nodule Exercise / Class Metabolic Activity II 4-5 Yardwork/Stairs/Walk up hill Past Family History Family History Brother Heart disease Mother Heart disease Father Heart disease Denies family history of Ovarian cancer Prostate cancer Myocardial infarction Breast cancer Colorectal cancer Past Surgical History Surgical History Hx of bilateral cataract extraction Status post right knee replacement History of cardiac cath History of colonoscopy History of tooth extraction History of dilatation and curettage S/P knee surgery S/P CABG (coronary artery bypass graft) S/P appendectomy Past Anesthesia History No Hx of Anesthesia Complications and No Family Hx of Anesthesia Complications History of PONV No Hx of PONV and No Hx of Motion Sickness Social History Smoking Status: Never smoker Do You Dip or Chew Tobacco: No Hx Alcohol Use: Yes Alcohol type: beer alcohol intake frequency: holidays/special occasions only Hx Substance Use: No substance use type: does not use Physical Exam Vital Signs Last Vital Signs Pulse 71 12/14/23 09:39 Resp 20 12/14/23 09:39 BP 173/86 H 12/14/23 09:39 Pulse Ox 99 12/14/23 09:39 O2 Del Method Room Air 12/14/23 09:39 ENMT Mouth: no dentition abnormality Thyromental Distance: > or= 3.5 Finger Breadths Mallampati Class: II Neck normal visual inspection Respiratory normal respiratory effort Auscultation: lungs clear to auscultation bilaterally Cardiovascular Rate/Rhythm: regular rate and regular rhythm Psychiatric Orientation: alert Testing Electrocardiogram Date: 11/29/23 NSR at 71bpm. PACs. Minimal voltage criteria for LVH, may be normal variant (Sokolow-Brar). No significant change compared to 06/19/2020 per petroleum refinery worker comparison. Chest X-Ray Date: 11/29/23 FINDINGS: Cardiomediastinal and hilar silhouettes are within normal limits. Median sternotomy with mediastinal surgical clips. No pneumothorax, pleural effusion or airspace consolidation. Bones appear grossly intact. Lumbar levoscoliosis redemonstrated. IMPRESSION: No acute process.
--- NOTE | 2023-12-14 10:53 | History & Physical Bridge Note ---
Date of Service December 14, 2023 History & Physical Bridge Note I have examined the patient, reviewed the History & Physical and in the interval since the performance of the History & Physical I have noted the following changes of clinical significance: no changes noted
[2023-12-14] MEDS: ceFAZolin 2000MG 2,000 MG/15 ML SYR IV SCH (10:59)
[2023-12-14] MEDS ORDERED: ePHEDrine sulfate 50 MG/5 ML SYR ONE (11:12)
[2023-12-14] MEDS: ROPIV 0.5% 246mg, Ketorolac 30mg, EPINEPHrine 0.5mg in NSS INFIL SCH (11:32)
[2023-12-14] MEDS: ORTHO JOINT ANESTHETIC ONE (11:48)
[2023-12-14] MEDS: TRANEXAMIC ACID 1,000 MG **IV Intra-op IV SCH (11:55)
[2023-12-14] MEDS ORDERED: PHENYLEPHRINE HCL 10 MG/ML VIAL ONE (12:26)
--- NOTE | 2023-12-14 12:47 | Operative Report ---
PG Post Operative Report Pre & Post Diagnosis Operation Date: 12/14/23 10:40 Pre-Op Diagnosis: Left Knee Degenerative Joint Disease Post-Op Diagnosis: Left Knee Degenerative Joint Disease I identified the patient and participated in the time-out.: Yes Procedure Operation Date: 12/14/23 10:40 Actual Procedures p Left Total Knee Arthroplasty(Left) - Cruzito Carrasquillo MD Surgeon Cruzito Carrasquillo MD Care Attendant Ambrocio Fairbanks PA-C Estimated Blood Loss 150 Findings Consistent with Post-Op Diagnosis Operative findings revealed a left knee DJD. She had extensive grade 4 ahqf-jn-hrhf disease of the patellofemoral joint. She did have a grade 4 disease elsewhere particular in the lateral side of her knee. No major eburnation between the tibiofemoral joint. She did have quite a bit of eburnation of the patellofemoral joint. Moderate-sized joint effusion. Slight valgus alignment to her knee. Diffuse osteopenia. Specimens Left knee sent for pathology. Anesthesia Type General Complications none Disposition Accompanied Patient To Recovery: No Indications Patient is an 83-year-old female with multiple medical problems including fairly well-controlled multiple sclerosis whose had a long history of knee problems. She had a right knee replaced several years ago. Over the past year she developed increased pain discomfort in her left knee. She got to the point where she had to use a walker to get around. She failed conservative measures. She would like to proceed with total knee arthroplasty. Description of Procedure Operative implants consist of: 1 Biomet Vanguard size 65 left posterior stabilized femoral component. 2. Biomet size 67 tibial tray. 3. 10 mm posterior stabilized polyethylene insert. 4. 28 x 8 all poly patella. The patient was taken the operating, identified, placed on the operating table in supine position. All contact areas were properly padded. IV antibiotics were provided by anesthesia team. A general anesthetic was implemented by the anesthesia team. A Layton catheter was placed in sterile fashion. A left thigh turn was then placed in the left lower extremities then prepped and draped in usual sterile fashion. Left leg was elevated exsanguinated with use of an Esmarch and a turn was placed at 300 mmHg. An anterior approach the left knee was then performed to longitudinal incision centered over the patella. Sharp dissection was got through subcutaneous tissue down the extensor mechanism. Medial parapatellar arthrotomy incision is made. Some subperiosteal dissection was carried out medially. The fat pad was resected from Neath patella tendon. The lateral patellofemoral ligament was released. Patella subluxated laterally knee was flexed. The osteophytes taken on distal femur. The ACL and PCL were released from the distal femur and the tibia subluxated anteriorly. The external tibial alignment jig was then placed in the interface of the tibia and adjusted 12 mm medially. Proximal tibial cut was made to move out 2 to 3 mm of bone from the medial side. The tibia was sized to a size 67. Attention drawn the femur. Of note, for some reason the tourniquet did not seem to be working so we did let the tourniquet down for final tourniquet time 26 minutes. It was not used the remainder of the case. The distal femur stem with a sharp drill. The intramedullary canal was suction. A left 5 degree valgus cutting guide was placed. The distal femoral cutting block was pinned in place. Distal femoral cut was made to take an additional 3 mm of bone off distal femur. The femur was then sized to a size 65. The AP cutting block was pinned parallel to the epicondylar axis which was 6 degrees of external rotation. The anterior cut, anterior chamfer, posterior cut, posterior chamfer cuts were made. The box cutting guide was placed in just slight lateral and the box cut was made. The knee was flexed. The remnants of the medial and lateral menisci were excised. The osteophyte taken off the posterior aspect of the femur. Trial femoral component was placed. The tibial tray was pinned Judit external rotation and the drill and stem punch used to create defect in proximal tibia for the tibial tray. The knee was then trialed and the 10 mm insert fit most appropriately. Attention drawn the patella. The patella was cleaned of soft tissues. Patella thickness measured 18 mm in thickness was cut down to 12. Was sized to a size 28 patella. The lug holes were drilled for the 28 patella. The lateral osteophyte was removed. Patella button was placed. Knee was taken through range of motion patella tracked nicely with no thumbs test. Attention drawn to placing permanent components. Nupathe all trial components were removed. Bone plug was placed in the distal femur limit blood loss. A double batch Palacos G cement was mixed. A Biomet Ning by Glam Mediaguard size 65 left posterior stabilized femoral component, size 67 tibial tray, 10 mm post stabilized polyethylene insert, and a 28 x 8 all poly patella then cemented in place. The knee was brought out into full extension till cement hardened. Final cement check was then performed. The pericapsular tissues were injected with total of 100 cc of orthopedic joint mix. The patient did receive 1 g tranexamic acid. The tourniquet had been let down previously. Hemostasis assured use electrocautery. The extensor Metros then closed with combination 1 PDS suture #1 Vicryl suture in a [id number] fashion. Extensor mechanism checked found to be intact in the subcutaneous tissues then closed with 2 Dexon suture in buried erupted fashion skin was closed skin manan. Leg was then cleaned and dried and sterile dressing was Xeroform, 4 fours, sterile cast padding, Yousuf bandage were applied. Patient then transferred to the recovery in stable condition. Patient tolerated procedure well and there were no complications. Ambrocio Fairbanks, my physician bilingual legal assistant, was present for the entire procedure. His assistance was essential and required for appropriate patient positioning, prepping and draping, surgical exposure, performing the technical details of the operation, placement the implants, closure of the wound, and placement of the sterile bandage. I attest to the content of the Intraoperative Record and any orders documented therein. Any exceptions are noted below.
[2023-12-14] MEDS ORDERED: METOCLOPRAMIDE HCL INJ 5 MG/ML 2 ML VIAL IV PRN (13:42)
[2023-12-14] MEDS ORDERED: bisacodyL 10 MG SUPP PR PRN (13:42)
[2023-12-14] MEDS ORDERED: ALUMINUM/MAGNESIUM SUSP 30 ML UDC PO PRN (13:42)
[2023-12-14] MEDS ORDERED: HYDROCORTISONE HC 2.5% CRM 30GM TUBE EXT PRN (13:42)
[2023-12-14] MEDS ORDERED: HYDROmorphone INJ 0.5 MG/0.5 ML SYR IV PRN (13:42)
[2023-12-14] MEDS ORDERED: NALOXONE HCL 0.4 MG/1 ML VIAL/CARP IV PRN (13:42)
[2023-12-14] MEDS ORDERED: NON-FORMULARY MEDICATION (Amoxicillin 500 mg tablet) PO PRN (13:42)
--- NOTE | 2023-12-14 13:46 | XRay Report ---
TWO VIEWS LEFT KNEE CLINICAL HISTORY: Postoperative examination. FINDINGS: AP and crosstable lateral portable views of the left knee are obtained. A left knee arthrop lasty is in near anatomic alignment. There has been undersurface remodeling of the patella. No acute fracture is seen. There are expected postoperative changes around the knee including skin clips, soft tissue edema, and subcutaneous gas. Advanced atherosclerotic calcification is noted in the popliteal artery. IMPRESSION: Expected postoperative changes status post left knee arthroplasty. No acute fracture is s een. ACT 112: Negative or not required by law. Electronically signed by: Get Gustafson M.D. 12/14/2023 1:45 PM
[2023-12-14] MEDS ORDERED: ARTIFICIAL TEARS OP PRN (13:58)
[2023-12-14] MEDS: SODIUM CHLORIDE 0.9% 1,000 ML IV SCH (14:00)
--- NOTE | 2023-12-14 15:53 | Anesthesiology Progress Note ---
Date of Service December 14, 2023 Anesthesia Post Procedure Vital Signs Vital Signs: Temp Pulse Pulse Resp BP Pulse Ox O2 Del Method 12/14/23 15:12 36.5 C 83 20 148/72 H Room Air 12/14/23 14:12 36.2 C L 85 20 148/70 H 99 Room Air 12/14/23 13:42 36.2 C L 84 20 136/71 97 Room Air 12/14/23 13:25 90 16 155/68 H 97 Room Air 12/14/23 13:15 36.4 C L 89 18 142/66 H 97 Room Air 12/14/23 13:05 90 16 151/67 H 100 Oxymask 12/14/23 12:55 95 H 18 148/61 H 100 Oxymask 12/14/23 12:45 36.0 C L 98 H 16 150/67 H 98 Oxymask 12/14/23 09:39 71 20 173/86 H 99 Room Air O2 Flow Rate 12/14/23 15:12 12/14/23 14:12 12/14/23 13:42 12/14/23 13:25 12/14/23 13:15 12/14/23 13:05 4 12/14/23 12:55 4 12/14/23 12:45 6 12/14/23 09:39 Transfer of Care Handoff Completed per policy Notes Mental Status: alert / awake / arousable Patient Amnestic to Procedure: Yes Nausea / Vomiting: adequately controlled Pain: adequately controlled Airway Patency, RR, SpO2: stable & adequate BP & HR: stable & adequate Hydration State: stable & adequate Anesthetic Complications: no major complications apparent
[2023-12-14] MEDS: KETOROLAC TROMETHAMINE 15 MG/ML VIAL IV SCH (16:16)
[2023-12-14] MEDS: ASCORBIC ACID 500 MG TAB PO SCH (16:16)
[2023-12-14] MEDS: TRANEXAMIC ACID / 0.7% NACL 1,000 MG/100 ML BAG IV SCH (18:33)
[2023-12-14] MEDS: ceFAZolin 1000MG 1,000 MG/7.5 ML SYR IV SCH (18:33)
[2023-12-14] MEDS: ASPIRIN 81 MG ECTAB PO SCH (20:25)
[2023-12-14] MEDS: ROSUVASTATIN CALCIUM 10 MG TAB PO SCH (20:26)
[2023-12-14] MEDS: SENNA 8.6 MG TAB PO SCH (20:26)
[2023-12-14] MEDS: DOCUSATE SODIUM 100 MG CAP PO SCH (20:27)
[2023-12-14] MEDS: clonazePAM 0.5 MG TAB PO PRN (22:21)
[2023-12-15 07:42] LABS: BUN Creatinine Ratio 16.7 (10-20); Calcium 8.6 mg/dl (8.6-10.3); Creatinine Clr Calc Pharmacy 40.5 ml/min; Est GFR (African American) 73.5 ml/min; Est GFR (Non-African American) 63.4 ml/min; Potassium 4.1 mmol/L (3.5-5.1)
[2023-12-15 07:46] LABS: Hematocrit (blood only) 30.3 % (37.0-47.0); Hemoglobin 10.4 g/dl (12.0-16.0); Mean Corpuscular Hemoglobin 34.4 pg (25.0-34.0); Mean Corpuscular Hgb Conc 34.3 g/dL (32.0-36.0); Mean Corpuscular Volume 100.3 fL (80.0-100.0); Mean Platelet Volume 11.2 fL (9.4-12.4); Platelet Count 186 K/uL (130-400); RDW Coefficient of Variation 12.8 % (11.5-14.5); RDW Standard Deviation 46.6 fL (36.4-46.3); Red Blood Count 3.02 M/uL (4.20-5.40); White Blood Count 14.41 K/ul (4.8-10.8)
[2023-12-15] MEDS: dexAMETHasone 10 MG in SYRINGE 0 ML IV SCH (08:28)
[2023-12-15] MEDS: METOPROLOL SUCC 25MG EXT REL TAB PO SCH (08:28)
[2023-12-15] MEDS: MULTIVITAMIN TAB PO SCH (08:29)
[2023-12-15] MEDS: RALOXIFENE HCL 60 MG TAB PO SCH (08:30)
[2023-12-15] MEDS: oxyCODONE HCL IR 5 MG TAB (IMMEDIATE RELEASE) PO PRN (08:31)
[2023-12-15] MEDS ORDERED: NON-FORMULARY MEDICATION (Multivit-Min-Iron-Fa-Vit K-Lut [Centrum Silver Women] 8 mg iron- PO SCH (09:00)
--- NOTE | 2023-12-15 11:36 | Orthopedic Progress Note ---
Date of Service December 15, 2023 Assessment & Plan (1) Status post left knee replacement: Overall, she is doing quite well today with good pain control to the left knee. She will work with physical therapy later this morning to work on ambulation and range of motion exercises. She does wish to go to [facility] for rehabilitation upon discharge. Case management currently has a referral out for this. She will need to work with physical therapy today for physical therapy note to also send over for recommendation for admission upon discharge. She is orthopedically stable for discharge once a bed is available. She will follow-up with Dr. Carrasquillo in 2 weeks for postoperative management. Nurys Fleming was seen and evaluated this morning resting comfortably in no apparent distress. She notes that her pain is well-controlled to the left knee. She has yet to be seen by physical therapy this morning. She has been up and out of bed with no significant issues. She denies any other concerns today. Review of Systems All systems reviewed & are unremarkable except as noted in HPI & below. Physical Exam . On physical examination of the left knee, dressings are clean, dry, and intact. Her leg is out in full extension. She has active plantarflexion dorsiflexion of left ankle. +2 DP and PT pulses. Less than 2-second capillary refill. Normal sensation. Neurovascular intact. Results & Data Results & Data Laboratory Results . Diagnostic Findings . Postoperative x-rays of the left knee show prosthesis to be in anatomical alignment with no signs of fracture complication or loosening. PG Care Time/CCT Total # of Minutes Spent Total Time Spent with Patient: Total time spent is greater than 50% in coordination of care (as documented) at patient's floor/unit and/or counseling patient: Coding Level of Care Code 46499 Post Operative Follow-Up Diagnoses Status post left knee replacement Z96.652
[2023-12-15] MEDS: MAGNESIUM HYDROXIDE SUSP 30 ML UDC PO PRN (19:48)
--- NOTE | 2023-12-16 10:01 | Orthopedic Progress Note ---
Date of Service December 16, 2023 Assessment & Plan (1) Status post left knee replacement: Overall, she is doing quite well today with good pain control to the left knee. She will work with physical therapy later this morning to work on ambulation and range of motion exercises. She does wish to go to [facility] for rehabilitation upon discharge. Case management currently has a referral out for this. She will need physical therapy notes to also send over for recommendation for admission upon discharge. She is on aspirin for DVT prophylaxis. She is orthopedically stable for discharge once a bed is available. She will follow-up with Dr. Carrasquillo in 2 weeks for postoperative management. Nurys Fleming was seen and evaluated this morning resting comfortably in no apparent distress. She notes that her pain is well-controlled to the left knee. She has participated with physical therapy yesterday and states that it went well. She notes that they did walk around her room but did not walk around the hallway. She has yet to be seen by physical therapy this morning. She has been up and out of bed with no significant issues. She denies any other concerns today. Review of Systems All systems reviewed & are unremarkable except as noted in HPI & below. Physical Exam .On physical examination of the left knee, dressings are clean, dry, and intact. Her leg is out in full extension. She has active plantarflexion dorsiflexion of left ankle. +2 DP and PT pulses. Less than 2-second capillary refill. Normal sensation. Neurovascular intact. Results & Data Results & Data Laboratory Results . Diagnostic Findings . PG Care Time/CCT Total # of Minutes Spent Total Time Spent with Patient: Total time spent is greater than 50% in coordination of care (as documented) at patient's floor/unit and/or counseling patient: Coding Level of Care Code 57477 Post Operative Follow-Up Diagnoses Status post left knee replacement Z96.652
--- NOTE | 2023-12-17 13:01 | Surgery Progress Note ---
Date of Service December 17, 2023 Assessment & Plan (1) Status post left knee replacement: Plan: 83-year-old female postop day 3 from a left knee replacement doing pretty well. She did unfortunately, she got denied rehab. She does like to get out of the hospital and go home. She has a family that can assist in her care. Plan: 1. DVT prophylaxis including thigh-high teds, SCDs, aspirin twice a day. 2. PT/OT. Weight-bear as tolerated. Left total knee protocol. Will set her up with some home health. 3. Pain control doing okay with current pain regimen. 4. Disposition plan to discharge home with some home health today. Admission and Anticipated Discharge Date Admission Date: December 14, 2023 Subjective 83-year-old female now postop day 3 from a knee replacement. She is doing pretty well. She got denied to rehab. She is want to go home. Does not want to be in the hospital anymore. She is getting around reasonably well. That she has some family that can help her. Denies any chest pain or shortness of breath. Knee pain is very manageable. Physical Exam Physical Exam: Physical examination of the left knee reveals dressing be clean dry and intact. She can dorsiflex and plantarflex her foot appropriately. She can do a straight leg raise. Results & Data Vital Signs (Past 12 Hours) Vital Signs Temp Pulse Pulse Resp BP BP Pulse Ox 12/17/23 11:17 36.5 C 82 81 17 150/73 H 162/69 H 97 12/17/23 07:22 36.5 C 81 17 150/73 H 97 O2 Del Method 12/17/23 11:17 12/17/23 07:22 Room Air PG Care Time/CCT Total # of Minutes Spent Total Time Spent with Patient: Total time spent is greater than 50% in coordination of care (as documented) at patient's floor/unit and/or counseling patient: Coding Level of Care Code 32893 Post Operative Follow-Up Diagnoses Status post left knee replacement Z96.652
--- NOTE | 2023-12-17 14:18 | Discharge Summary ---
Date of Service December 17, 2023 Admission HPI (Per Admitting) . Patient is an 83-year-old female who returns for follow-up and treatment of her left knee. Had a long history of knee problems and replaced her right knee 3 years ago. Never been completely happy with this but says she is significantly improved.Still a little bit of lateral knee pain. She continues to be bothered by left knee pain discomfort and instability. I been following her for this for years. She has had injections which provide some temporary relief. She is frustrated by her pain discomfort and instability. She is actually resorted to use a walker lately. She like to have her knee fixed. Admission Exam (Per Admitting) . Physical examination reveals a general somewhat frail elderly female. Examination of left knee reveals patient walks with use of a walker. She gets a slight valgus alignment to her knee. Small knee effusion. He does have pretty significant incision over the medial side of her knee anteriorly and medially. The range of motion is full extension to about 110 degrees of flexion. She can do a straight leg raise. No pain with hip motion. Principal Diagnosis Same as "Discharge Diagnosis" noted below under Discharge Instructions. Discharge Exam .On physical examination of the left knee, dressings are clean, dry, and intact. Her leg is out in full extension. She has active plantarflexion dorsiflexion of left ankle. +2 DP and PT pulses. Less than 2-second capillary refill. Normal sensation. Neurovascular intact. Discharge Data Procedures Performed Operation Date: 12/14/23 10:40 Actual Procedures p Left Total Knee Arthroplasty(Left) - Cruzito Carrasquillo MD Ordered Studies 12/14/23 05:00 US - OR guided needle placemen Routine Hospital Course (1) Status post left knee replacement: On December 14, 2023 Bernadette arrived at [facility] and underwent a left total knee arthroplasty performed by Dr. Carrasquillo with no complications. She had a spinal anesthetic. Postoperatively, she was started on aspirin for DVT prophylaxis and transferred to the general orthopedic floor in stable condition. Her hospital course was uneventful. On postoperative day #1, her vital signs are stable and her pain is well-controlled. She participated well with physical therapy working on ambulation and range of motion exercises. She did state prior to surgery to that she was interested in going to [facility] for rehabilitation upon discharge. Case management was handling this aspect. No beds were available and insurance authorization were not cleared on this day. No other significant events occurred on this day. No significant events occurred on postoperative day #2. She was still waiting to hear back from her insurance authorization for [facility]. On postoperative day #3, her vital signs are stable and her pain is well-controlled. She again participated well with physical therapy working on ambulation and range of motion exercises. Her insurance denied at [facility] and she was not interested in going to a prison facility on discharge. She discussed today with family and felt that she was able to be discharged today with [facility]. She was then discharged home in stable condition. She will follow-up with Dr. Carrasquillo in 2 weeks for postoperative management. PG Care Time/CCT Total # of Minutes Spent Total Time Spent with Patient: Total time spent is greater than 50% in coordination of care (as documented) at patient's floor/unit and/or counseling patient: Discharge Plan Discharge Items Patient Disposition: Home - Home Health Services Reason For Visit: Left Knee Degenerative Joint Disease Discharge Diagnosis: Left Knee Replacement Activity: Per Instructions section Weightbearing: Full weightbearing Non-emergency contact: Surgeon Call non-emergency contact if: you have any medication questions Follow-up/Referrals: Davonte Gallagher MD [Primary Care Provider] - Diet: Regular Addtl Attending Provider Instructions: ACTIVITY RECOMMENDATIONS: Physical Therapy: * You will go to physical therapy three times each week for four to six weeks after your surgery in order to regain your knee range of motion and to retrain your knee to work properly. * It is just as important to make sure you are getting your knee perfectly straight as it is to regain your knee bend. * Taking a pain pill an hour before therapy can help you have a more productive and comfortable therapy session. Home Exercise: * You were shown a series of exercises (heel props, heel slides, etc.) in the hospital. Do these exercises three to four times each day including the exercises you were shown in physical therapy. Walking: * Get up and walk several times each day. For the first four weeks, try not to stand or walk for more than one hour at a time. If you do stand or walk for more than one hour, you will not hurt anything, but your knee and leg will likely swell. * As you feel comfortable, you may change from the walker or crutches to a cane and then to independent walking. MEDICATIONS: New Medicine: * You will likely be taking one or more of these medications: 1. Oxycodone - A quick and shorter-acting pain medication. Take one to two tablets every six hours to lessen your pain. 2. Aspirin - Thins your blood to lessen the chance of forming a blood clot. * The most common side effects of pain medicine and iron are nausea and constipation. If nausea or constipation is too much of a problem or if you have any questions about your new medicines or doses, call [facility] at . We will try to help you manage these issues. "VERY IMPORTANT TO READ AND REVIEW" Pain: * The immediate post-operative period after knee replacement surgery is often quite painful. * You are given a prescription for pain medicine. You should take it, as directed, when you need it, especially before physical therapy and before going to bed. Pain that interferes with sleep is very common and can last several months. * You will likely need pain medicine for the first four to six weeks. It will not stop all of the pain. The pain will lessen and as you feel better, you may change to milder pain medicine such as Tylenol. * The most common side effects of pain medicine are nausea and constipation, so don't take more than you need. SPECIAL CARE INSTRUCTIONS: TEDs/Elastic Stockings: * The white elastic stockings help limit swelling and prevent blood clots from forming in your legs. The more you wear them, the more they work. * Wear them for six weeks after knee replacement surgery and four weeks after partial knee replacement. Incision Site Care: * Remove dressing postoperative day 2 and then shower. Keep direct shower pressure off the incision site. * After showering, cover manan with dry gauze and change daily or more frequently if the dressing is getting saturated with drainage. * Use the CHEIKH stockings to hold dressing in place. DO NOT apply tape on the skin. * May completely stop using bandage if wound is dry and no drainage * [place] are removed between 2 and 3 weeks post-op. If your follow-up appointment is made before 2 weeks, please have your appointment re- scheduled. It is too early to remove the manan. Prevention of Infection: * Take antibiotics one hour before any dental cleaning, dental work, urological procedure, gastrointestinal procedure or any invasive surgery in order to prevent your new joint from getting infected. * You may get the antibiotics from the doctor performing the procedure or you may call our office at [phone] before and we will call in a prescription to the pharmacy of your choice. Things to Watch For: * Drainage from the incision site that occurs more than one week after your surgery. * Severely increased knee/leg pain or swelling. * Increased redness at the incision site. * Fever above 102 degrees Fahrenheit. * Unusual chest pain or shortness of breath. * Unusual pain or burning with urination. Call [facility] at [phone] with any of the above problems or if you have any questions about your medicines or recovery. FOLLOW UP VISIT: Make an appointment to see your doctor for approximately two weeks after surgery for a progress check and staple removal by calling the office at [phone]. Pending Studies at Discharge: No Stand-Alone Forms: [facility] [employer], Smoking Cessation Medications and DC Order Prescriptions: New acetaminophen [Tylenol Extra Strength] 500 mg Tablet 1,000 mg PO Q8 30 Days Qty: 180 0RF Rx Instructions: Take 3 times per day to lessen pain aspirin 81 mg Tablet,Delayed Release (Dr/Ec) 81 mg PO BID 45 Days Qty: 90 0RF Rx Instructions: Take to prevent blood clots, oxycodone 5 mg Tablet 5 mg PO Q4H PRN (Reason: pain) Qty: 30 0RF Continued raloxifene 60 mg tablet 60 mg PO QAM Qty: 90 3RF metoprolol succinate 25 mg tablet extended release 24 hr 12.5 mg PO QAM Qty: 45 3RF hydrocortisone 2.5 % cream with perineal applicator 1 applic VA BID PRN (Reason: hemorrhoids) Qty: 30 2RF cyclosporine [Restasis] 0.05 % Dropperette 1 drp OPB BID Centrum Silver Women 8 mg iron-400 mcg-50 mcg Tablet 1 tab PO QAM clonazepam 0.5 mg tablet 0.25 - 0.5 mg PO HS PRN (Reason: anxiety/sleep) Rx Instructions: one half to one tablet orally qhs prn; aspirin [Adult Low Dose Aspirin] 81 mg tablet,delayed release (DR/EC) 81 mg PO QAM amoxicillin 500 mg tablet 2,000 mg PO UD PRN (Reason: dental procedures) Rx Instructions: 4 tabs 1 hour prior to procedure rosuvastatin 10 mg tablet 10 mg PO HS Discharge Orders: Discharge Order (Routine); Ordered 12/17/23 Ordered By: Cruzito Carrasquillo Admission Data Admit Date/Time: 12/14/23 12:43 Attending Provider: Cruzito Carrasquillo Admit Provider: Cruzito Carrasquillo Primary Care Provider: Davonte Gallagher Other Providers: [facility]; Sunny Cerna [facility] Other Interventions: Discharge Summary Assessment (RN) Last Done: 12/17/23 11:17
== END 2023-12-17 13:15 | disposition home health service (06) ==
LOC: ASU 09:08 → INTOOBSV 12:43 → 3N 12:43